=== PATIENT | male | born 1945 | race Two or more races ===

== ENCOUNTER 2024-06-27 11:07 | Inpatient (IN) | payer OTHER ==
--- OUTSIDE RECORDS SUMMARY | 2024-06-27 11:12 | XMS REPORT | Continuity of Care Document ---
Author Name Unknown Address [address] [facility] [place] [address] [facility] Address [address] [place] [address] Care Team Providers Care Entry Writer Name Role Phone BELEN FOUNTAIN Primary Care Physician Belen Pedraza Attending Clinician Unavail able Joseph Hernández Attending Clinician Unavailable Shabnam Patel Attending Clinician Unavailable Katie Gongora Attending Clinician Unavailable IRINEO SIMMONS Attending Clinician Unavailable Payers Payer Name Policy Type Policy Number Effective Date Expirati on Date Source Formerly [facility] TXSTAR 53 [id number] 2023 00:00:00 [facility] Dual Complete (HMO-POS D-SNP) [id number] 2021 00:00:00 [facility] DUAL COMP HMO D SNP [id number] 2023 00:00:00 [facility] HEALTH CHOICE [place] ST[place] [id number] 2024 00:00:00 [facility] AD[facility] WELLMED 53 [id number] 2020 00:00:00 [facility] Problems Condition Name Condition Details Condition Category Status Onset Date Resolution Date Last Treatment Date Treating Clinician Comments Source [id number] Bilateral hearing loss, unspecifie d hearing loss type Problem [facility] [id number] Psoriasis of scalp Problem [facility] [id number] Primary osteoarthr itis involving multiple joints Problem [facility] [id number] Allergic conjunctiv itis of both eyes Problem [facility] Seasonal allergic rhinitis Seasonal allergic rhinitis, unspecifie d trigger Problem [facility] [id number] Essential hypertensi on Problem [facility] Hyperlipid emia Other hyperlipid emia Problem [facility] [id number] Bilateral impacted cerumen Problem [facility] [id number] Psoriasis annularis Problem [facility] [id number] Overweight Problem Com [facility] [id number] Prostate nodule Problem [facility] [id number] PSA elevation Problem [facility] [id number] Benign prostatic hyperplasi a with lower urinary tract symptoms Problem [facility] [id number] Other obstructiv e and reflux uropathy Problem [facility] Lower urinary tract symptoms due to benign prostatic hypertroph y Benign prostatic hyperplasi a with lower urinary tract symptoms, symptom details unspecifie d Problem [facility] Allergies, Adverse Reactions, Alerts Allergy Name Allergy Type Status Severity Reaction(s) Onset Date Inactive Date Treating Clinician Comments Source NO KNOWN ALLERGIE S Drug Class Active [facility] 5023 Drug allergy Active Unknown [facility] Social History Social Habit Start Date Stop Date Quantity Comments Source History of Tobacco Use [facility] Sex Assigned At [facility] Smoking Status Start Date Stop Date Source Never Smoker [facility] Medications Ordered Medication Name Filled Medication Name Start Date Stop Date Current Medication? Ordering Clinician Indication Dosage Frequency Signature (SIG) Comments Components Source Tamsulosin HCl 0.4 MG Tamsulosin HCl 0.4 MG 2023-04 0-07 00:00: 00 No 1{capsu le} BID Tamsulosin HCl 0.4 MG Kenalog (Triamcinol one) Kenalog (Triamcinol one) 1- 00:00: 00 No 40mg [facility] Triamcinolo ne Acetonide 0.1 % Triamcinolo ne Acetonide 0.1 % No 1{appli cation_ to_affe cted_ar ea} BID Triamcinol one Acetonide 0.1 % hydrOXYzine HCl 25 MG hydrOXYzine HCl 25 MG No 1{table t_as_ne eded} QD hydrOXYzin e HCl 25 MG Flonase 50 MCG/DOSE Flonase 50 MCG/DOSE No 2{spray _in_eac h_nostr il} QD Flonase 50 MCG/DOSE Clobetasol Propionate 0.05 % Clobetasol Propionate 0.05 % No 1{appli cation_ to_affe cted_ar ea} BID Clobetasol Propionate 0.05 % amLODIPine Besy-Benaze pril HCl 5-10 MG amLODIPine Besy-Benaze pril HCl 5-10 MG No 1{capsu le} QD amLODIPine Besy-Benaz epril HCl 5-10 MG Olopatadine HCl 0.2 % Olopatadine HCl 0.2 % No QD Olopatadin e HCl 0.2 % Fluticasone Propionate 50 MCG/ACT Fluticasone Propionate 50 MCG/ACT No Fluticason e Propionate 50 MCG/ACT Systane 0.4-0.3 % Systane 0.4-0.3 % No Systane 0.4-0.3 % Pravastatin Sodium 40 MG Pravastatin Sodium 40 MG No 1{table t} QD Pravastati n Sodium 40 MG Atorvastati n Calcium 20 MG Atorvastati n Calcium 20 MG No Atorvastat in Calcium 20 MG Immunizations Ordered Immunization Name Filled Immunization Name Date Status Comments Source Flu Flu 2020-01-28 09:46:[address] [facility] Flu 2020-01-28 09:46:00 [facility]pleted [facility] 2020-01-28 09:46:00 Completed [facility] Td Td 2018-12-07 12:02:00 Completed [facility] Td Td 2018-12-07 12:02:00 Completed [facility] Td Td 2018-12-07 12:02:00 Completed [facility] PNEUMAVAX 23 PNEUMAVAX 2018-12-07 12:01:00 Completed [facility] PNEUMAVAX 23 PNEUMAVAX 23 2018-12-07 12:01:00 Completed [facility] PNEUMAVAX 23 PNEUMAVAX 23 2018-12-07 12:01:00 Completed [facility] Td Td 2018-12-07 00:00:00 Completed [facility] PNEUMAVAX 23 PNEUMAVAX 23 2018-12-07 00:00:00 Completed [facility] Prevnar 13 -Pneumonia Vaccine Prevnar 13 -Pneumonia Vaccine 2017-07-26 13:44:00 Completed [facility] Prevnar 13 -Pneumonia Vaccine Prevnar 13 -Pneumonia Vaccine 2017-07-26 13:44:00 Completed [facility] Prevnar 13 -Pneumonia Vaccine Prevnar 13 -Pneumonia Vaccine 2017-07-26 13:44:00 Completed [facility] Prevnar 13 -Pneumonia Vaccine Prevnar 13 -Pneumonia Vaccine 2017-07-26 00:00:00 Completed [facility] FluAD FluAD Unknown Completed [facility] PNEUMAVAX 23 PNEUMAVAX 23 Unknown Completed Comm on [facility] Td Td Unknown Completed [facility] Prevnar 13 -Pneumonia Vaccine Prevnar 13 -Pneumonia Vaccine Unknown Completed [facility] FluAD Quad SD FluAD Quad SD Unknown Completed [facility] FluAD FluAD Unknown Completed [facility] PNEUMAVAX 23 PNEUMAVAX 23 Unknown Completed Comm on [facility] Td Td Unknown Completed [facility] Prevnar 13 -Pneumonia Vaccine Prevnar 13 -Pneumonia Vaccine Unknown Completed [facility] FluAD Quad SD FluAD Quad SD Unknown Completed [facility] FluAD FluAD Unknown Completed [facility] PNEUMAVAX 23 PNEUMAVAX 23 Unknown Completed Comm on [facility] Td Td Unknown Completed [facility] Prevnar 13 -Pneumonia Vaccine Prevnar 13 -Pneumonia Vaccine Unknown Completed [facility] FluAD Quad SD FluAD Quad SD Unknown Completed [facility] FluAD FluAD Unknown Completed [facility] PNEUMAVAX 23 PNEUMAVAX 23 Unknown Completed Comm on [facility] Td Td Unknown Completed [facility] Prevnar 13 -Pneumonia Vaccine Prevnar 13 -Pneumonia Vaccine Unknown Completed [facility] Fluad (aIIV4) - SDS - 0.5mL Fluad (aIIV4) - SDS - 0.5mL Unknown Completed [facility] FluAD FluAD Unknown Completed [facility] PNEUMAVAX 23 PNEUMAVAX 23 Unknown Completed Comm on [facility] Td Td Unknown Completed [facility] Prevnar 13 -Pneumonia Vaccine Prevnar 13 -Pneumonia Vaccine Unknown Completed [facility] Fluad (aIIV4) - SDS - 0.5mL Fluad (aIIV4) - SDS - 0.5mL Unknown Completed [facility] FluAD FluAD Unknown Completed [facility] PNEUMAVAX 23 PNEUMAVAX 23 Unknown Completed Comm on [facility] Td Td Unknown Completed [facility] Prevnar 13 -Pneumonia Vaccine Prevnar 13 -Pneumonia Vaccine Unknown Completed [facility] Fluad (aIIV4) - SDS - 0.5mL Fluad (aIIV4) - SDS - 0.5mL Unknown Completed [facility] FluAD FluAD Unknown Completed [facility] PNEUMAVAX 23 PNEUMAVAX 23 Unknown Completed Comm on [facility] Td Td Unknown Completed [facility] Prevnar 13 -Pneumonia Vaccine Prevnar 13 -Pneumonia Vaccine Unknown Completed [facility] Fluad (aIIV4) - SDS - 0.5mL Fluad (aIIV4) - SDS - 0.5mL Unknown Completed [facility] FluAD FluAD Unknown Completed [facility] PNEUMAVAX 23 PNEUMAVAX 23 Unknown Completed Comm on [facility] Td Td Unknown Completed [facility] Prevnar 13 -Pneumonia Vaccine Prevnar 13 -Pneumonia Vaccine Unknown Completed [facility] Fluad (aIIV4) - SDS - 0.5mL Fluad (aIIV4) - SDS - 0.5mL Unknown Completed [facility] FluAD FluAD Unknown Completed [facility] PNEUMAVAX 23 PNEUMAVAX 23 Unknown Completed Comm on [facility] Td Td Unknown Completed [facility] Prevnar 13 -Pneumonia Vaccine Prevnar 13 -Pneumonia Vaccine Unknown Completed [facility] Fluad (aIIV4) - SDS - 0.5mL Fluad (aIIV4) - SDS - 0.5mL Unknown Completed [facility] FluAD FluAD Unknown Completed [facility] PNEUMAVAX 23 PNEUMAVAX 23 Unknown Completed Comm on [facility] Td Td Unknown Completed [facility] Prevnar 13 -Pneumonia Vaccine Prevnar 13 -Pneumonia Vaccine Unknown Completed [facility] Vital Signs Vital Name Observation Time Observation Value Comments S martinace height 2024-05-16 15:15:00 63.00 [in_i] Com [facility] weight 2024-05-16 15:15:00 151.2 [lb_av] Co mmon [facility] temperature 2024-05-16 15:15:00 97.6 [degF] Com [facility] bmi 2024-05-16 15:15:00 26.78 kg/m2 Comm on [facility] oximetry 2024-05-16 15:15:00 96 % Commo n [facility] respiratory rate 2024-05-16 15:15:00 18 /min [facility] blood pressure systolic 2024-05-16 15:15:00 124 mm[Hg] [facility] blood pressure diastolic 2024-05-16 15:15:00 59 mm[Hg] [facility] height 2024-03-27 10:45:00 63.00 [in_i] Com [facility] weight 2024-03-27 10:45:00 152.6 [lb_av] Co mmon [facility] temperature 2024-03-27 10:45:00 98.2 [degF] Com [facility] bmi 2024-03-27 10:45:00 27.03 kg/m2 Comm on [facility] oximetry 2024-03-27 10:45:00 90 % Commo n [facility] respiratory rate 2024-03-27 10:45:00 16 /min [facility] blood pressure systolic 2024-03-27 10:45:00 134 mm[Hg] [facility] blood pressure diastolic 2024-03-27 10:45:00 58 mm[Hg] Common [facility] height 2024-01-23 11:00:00 63.00 [in_i] Com [facility] weight 2024-01-23 11:00:00 151 [lb_av] Comm on [facility] temperature 2024-01-23 11:00:00 98 [degF] Comm on [facility] bmi 2024-01-23 11:00:00 26.75 kg/m2 Comm on [facility] oximetry 2024-01-23 11:00:00 92 % Commo n [facility] respiratory rate 2024-01-23 11:00:00 18 /min Common [facility] blood pressure systolic 2024-01-23 11:00:00 130 mm[Hg] [facility] blood pressure diastolic 2024-01-23 11:00:00 50 mm[Hg] Common [facility] height 2024-01-23 11:00:00 63.00 [in_i] Com [facility] weight 2024-01-23 11:00:00 151 [lb_av] Comm on [facility] temperature 2024-01-23 11:00:00 98 [degF] Comm on [facility] bmi 2024-01-23 11:00:00 26.75 kg/m2 Comm on [facility] oximetry 2024-01-23 11:00:00 92 % Commo n [facility] respiratory rate 2024-01-23 11:00:00 18 /min Common [facility] blood pressure systolic 2024-01-23 11:00:00 130 mm[Hg] Common [facility] blood pressure diastolic 2024-01-23 11:00:00 50 mm[Hg] [facility] height 2024-01-06 11:00:00 63.00 [in_i] Com [facility] weight 2024-01-06 11:00:00 151 [lb_av] Comm on [facility] temperature 2024-01-06 11:00:00 97.9 [degF] Com [facility] bmi 2024-01-06 11:00:00 26.75 kg/m2 Comm on [facility] oximetry 2024-01-06 11:00:00 90 % Commo n [facility] respiratory rate 2024-01-06 11:00:00 16 /min Common [facility] blood pressure systolic 2024-01-06 11:00:00 115 mm[Hg] [facility] blood pressure diastolic 2024-01-06 11:00:00 60 mm[Hg] [facility] height 2023-09-23 13:00:00 63.00 [in_i] Com [facility] weight 2023-09-23 13:00:00 152 [lb_av] Comm on [facility] temperature 2023-09-23 13:00:00 98 [degF] Comm on [facility] bmi 2023-09-23 13:00:00 26.92 kg/m2 Comm on [facility] oximetry 2023-09-23 13:00:00 90 % Commo n [facility] respiratory rate 2023-09-23 13:00:00 15 /min Common [facility] blood pressure systolic 2023-09-23 13:00:00 134 mm[Hg] [facility] blood pressure diastolic 2023-09-23 13:00:00 61 mm[Hg] Common [facility] height 2023-06-23 13:20:00 63.00 [in_i] Com [facility] weight 2023-06-23 13:20:00 149 [lb_av] Comm on [facility] temperature 2023-06-23 13:20:00 98 [degF] Comm on [facility] bmi 2023-06-23 13:20:00 26.39 kg/m2 Comm on [facility] oximetry 2023-06-23 13:20:00 91 % Commo n [facility] respiratory rate 2023-06-23 13:20:00 16 /min Common [facility] blood pressure systolic 2023-06-23 13:20:00 124 mm[Hg] [facility] blood pressure diastolic 2023-06-23 13:20:00 60 mm[Hg] [facility] height 2023-06-23 13:00:00 63.00 [in_i] Com [facility] weight 2023-06-23 13:00:00 149 [lb_av] Comm on [facility] temperature 2023-06-23 13:00:00 98 [degF] Comm on [facility] bmi 2023-06-23 13:00:00 26.39 kg/m2 Comm on [facility] oximetry 2023-06-23 13:00:00 91 % Commo n [facility] respiratory rate 2023-06-23 13:00:00 16 /min Common [facility] blood pressure systolic 2023-06-23 13:00:00 124 mm[Hg] [facility] blood pressure diastolic 2023-06-23 13:00:00 60 mm[Hg] [facility] height 2023-05-23 10:00:00 63.00 [in_i] Com [facility] weight 2023-05-23 10:00:00 152 [lb_av] Comm on [facility] temperature 2023-05-23 10:00:00 98.1 [degF] Com [facility] bmi 2023-05-23 10:00:00 26.92 kg/m2 Comm on [facility] oximetry 2023-05-23 10:00:00 93 % Commo n [facility] respiratory rate 2023-05-23 10:00:00 16 /min [facility] blood pressure systolic 2023-05-23 10:00:00 126 mm[Hg] [facility] blood pressure diastolic 2023-05-23 10:00:00 56 mm[Hg] [facility] height 2023-02-21 09:30:00 63.00 [in_i] Com [facility] weight 2023-02-21 09:30:00 157.1 [lb_av] Co mmon [facility] temperature 2023-02-21 09:30:00 98.2 [degF] Com [facility] bmi 2023-02-21 09:30:00 27.83 kg/m2 Comm on [facility] oximetry 2023-02-21 09:30:00 94 % Commo n [facility] respiratory rate 2023-02-21 09:30:00 16 /min [facility] blood pressure systolic 2023-02-21 09:30:00 120 mm[Hg] [facility] blood pressure diastolic 2023-02-21 09:30:00 54 mm[Hg] [facility] height 2022-10-26 10:10:00 63.00 [in_i] Com [facility] weight 2022-10-26 10:10:00 152.0 [lb_av] Co [facility] temperature 2022-10-26 10:10:00 97.5 [degF] Com [facility] bmi 2022-10-26 10:10:00 26.92 kg/m2 Comm on [facility] oximetry 2022-10-26 10:10:00 90 % Commo n [facility] respiratory rate 2022-10-26 10:10:00 18 /min [facility] blood pressure systolic 2022-10-26 10:10:00 133 mm[Hg] [facility] blood pressure diastolic 2022-10-26 10:10:00 60 mm[Hg] [facility] height 2022-10-26 10:20:00 63.00 [in_i] Com [facility] weight 2022-10-26 10:20:00 152.0 [lb_av] [facility] 2022-10-26 10:20:00 97.5 [degF] Com [facility] bmi 2022-10-26 10:20:00 26.92 kg/m2 Comm on [facility] oximetry 2022-10-26 10:20:00 90 % Commo n [facility] respiratory rate 2022-10-26 10:20:00 18 /min [facility] blood pressure systolic 2022-10-26 10:20:00 133 mm[Hg] [facility] blood pressure diastolic 2022-10-26 10:20:00 60 mm[Hg] Common [facility] height 2022-06-17 11:20:00 63.00 [in_i] Com [facility] weight 2022-06-17 11:20:00 151.2 [lb_av] Co [facility] temperature 2022-06-17 11:20:00 97.4 [degF] Com [facility] bmi 2022-06-17 11:20:00 26.78 kg/m2 Comm on [facility] oximetry 2022-06-17 11:20:00 96 % Commo n [facility] respiratory rate 2022-06-17 11:20:00 17 /min [facility] blood pressure systolic 2022-06-17 11:20:00 122 mm[Hg] Common [facility] blood pressure diastolic 2022-06-17 11:20:00 60 mm[Hg] [facility] height 2022-03-19 11:00:00 63.00 [in_i] Com [facility] weight 2022-03-19 11:00:00 158.0 [lb_av] Co [facility] temperature 2022-03-19 11:00:00 98.0 [degF] Com [facility] bmi 2022-03-19 11:00:00 27.99 kg/m2 Comm on [facility] oximetry 2022-03-19 11:00:00 95 % Commo n [facility] respiratory rate 2022-03-19 11:00:00 15 /min [facility] blood pressure systolic 2022-03-19 11:00:00 128 mm[Hg] Common [facility] blood pressure diastolic 2022-03-19 11:00:00 61 mm[Hg] Common [facility] height 2021-12-17 08:00:00 63.00 [in_i] Com [facility] weight 2021-12-17 08:00:00 157.6 [lb_av] Co mmon [facility] temperature 2021-12-17 08:00:00 97.7 [degF] Com [facility] bmi 2021-12-17 08:00:00 27.91 kg/m2 Comm on [facility] oximetry 2021-12-17 08:00:00 95 % Commo n [facility] respiratory rate 2021-12-17 08:00:00 16 /min Common [facility] blood pressure systolic 2021-12-17 08:00:00 128 mm[Hg] Common [facility] blood pressure diastolic 2021-12-17 08:00:00 61 mm[Hg] [facility] height 2021-09-15 08:20:00 63.00 [in_i] Com [facility] weight 2021-09-15 08:20:00 157 [lb_av] Comm on [facility] temperature 2021-09-15 08:20:00 97.7 [degF] Com [facility] bmi 2021-09-15 08:20:00 27.81 kg/m2 Comm on [facility] oximetry 2021-09-15 08:20:00 93 % Commo n [facility] respiratory rate 2021-09-15 08:20:00 21 /min Common [facility] blood pressure systolic 2021-09-15 08:20:00 122 mm[Hg] [facility] blood pressure diastolic 2021-09-15 08:20:00 70 mm[Hg] [facility] height 2021-06-15 10:00:00 63.00 [in_i] Com [facility] weight 2021-06-15 10:00:00 161.5 [lb_av] Co mmon [facility] temperature 2021-06-15 10:00:00 97.9 [degF] Com [facility] bmi 2021-06-15 10:00:00 28.61 kg/m2 Comm on [facility] oximetry 2021-06-15 10:00:00 96 % Commo n [facility] respiratory rate 2021-06-15 10:00:00 16 /min Common [facility] blood pressure systolic 2021-06-15 10:00:00 128 mm[Hg] Common [facility] blood pressure diastolic 2021-06-15 10:00:00 56 mm[Hg] [facility] height 2021-03-16 08:20:00 63.00 [in_i] Com [facility] weight 2021-03-16 08:20:00 157 [lb_av] Comm on [facility] temperature 2021-03-16 08:20:00 98 [degF] Comm on [facility] bmi 2021-03-16 08:20:00 27.81 kg/m2 Comm on [facility] oximetry 2021-03-16 08:20:00 96 % Commo n [facility] blood pressure systolic 2021-03-16 08:20:00 132 mm[Hg] Common [facility] blood pressure diastolic 2021-03-16 08:20:00 70 mm[Hg] Common [facility] height 2020-12-11 15:20:00 63.00 [in_i] Com [facility] weight 2020-12-11 15:20:00 159.2 [lb_av] Co mmon [facility] temperature 2020-12-11 15:20:00 97.2 [degF] Com [facility] bmi 2020-12-11 15:20:00 28.2 kg/m2 Commo n [facility] oximetry 2020-12-11 15:20:00 95 % Commo n [facility] respiratory rate 2020-12-11 15:20:00 18 /min [facility] blood pressure systolic 2020-12-11 15:20:00 120 mm[Hg] [facility] blood pressure diastolic 2020-12-11 15:20:00 60 mm[Hg] [facility] Procedures Procedure Date / Time Performed Performing Clinicia n Source PVR 2024-05-16 00:00:00 [facility] Encounters Start Date/Time End Date/Time Encounter Type Admission Type Attending Clinicians Care Facility Care Department Encounter ID Source 2024-06-21 10:29:00 Outpatient Belen Fountain [facility] [id number] [facility] 2024-03-28 13:56:00 Outpatient eBlen Fountain [facility] [id number] [facility] 2024-01-18 15:32:00 Outpatient Belen Fountain [facility] [id number] [facility] 2024-01-12 07:53:00 Outpatient Belen Fountain [facility] [id number] [facility] 2023-12-21 11:56:00 Outpatient Hernández, Joseph [facility] ST[facility] [id number] [facility] 2023-09-21 09:15:00 Outpatient Hernández, Joseph [facility] [id number] [facility] 2023-06-21 14:08:00 Outpatient Hernández, Joseph [facility] [id number] [facility] 2023-05-20 10:02:00 Outpatient Hernández, Joseph [facility] [id number] [facility] 2023-02-18 13:27:00 Outpatient Hernández, Joseph [facility] [id number] [facility] 2023-02-17 10:52:00 Outpatient Joseph Hernández [facility] [id number] [facility] 2022-10-26 09:38:00 Outpatient Joseph Hernández [facility] [id number] [facility] 2022-06-16 09:47:00 Outpatient [facility] [id number] [facility] 2022-06-11 11:52:00 Outpatient STLMLC STLMLC [id number] [facility] 2022-06-10 14:22:00 Outpatient Shabnam Patel STLMLC STLMLC [id number] [facility] 2021-12-17 08:09:00 Outpatient Gongora, Na STLMLC STLMLC [id number] [facility] 2021-12-15 08:40:00 Outpatient Gongora, Na STLMLC STLMLC [id number] [facility] 2021-10-26 16:45:00 Outpatient Gongora, Na STLMLC STLMLC [id number] [facility] 2021-09-16 12:34:00 Outpatient Gongora, Na STLMLC STLMLC [id number] [facility] 2021-09-10 10:24:00 Outpatient Gongora, Na STLMLC STLMLC [id number] [facility] 2021-06-12 10:30:02 Outpatient Gongora, Na STLMLC STLMLC [id number] [facility] 2021-05-13 13:19:10 Outpatient Gongora, Na STLMLC STLMLC [id number] [facility] 2021-05-13 12:50:38 Outpatient Gongora, Na STLMLC STLMLC [id number] [facility] 2021-05-13 12:19:51 Outpatient Gongora, Na STLMLC STLMLC [id number] [facility] 2021-05-13 11:53:53 Outpatient Gongora, Na STLMLC STLMLC [id number] [facility] 2021-05-13 11:53:40 Outpatient Gongora, Na STLMLC STLMLC [id number] [facility] 2021-05-13 11:53:08 Outpatient Gongora, Na STLMLC STLMLC [id number] [facility] 2021-05-13 11:40:08 Outpatient Gongora, Na STLMLC STLMLC [id number] [facility] 2021-05-13 11:30:21 Outpatient Gongora, Na STLMLC STLMLC [id number] [facility] 2021-05-13 11:14:24 Outpatient Gongora, Na STLMLC STLMLC [id number] [facility] 2021-05-13 10:59:38 Outpatient Fransisca, Na STLMLC STLMLC [id number] [facility] 2024-06-25 00:00:00 2024-06-25 00:00:00 (TEL) STLMLC STLMLC [id number] [facility] 2024-06-24 00:00:00 2024-06-24 00:00:00 (TEL) STLMLC STLMLC [id number] [facility] 2024-05-16 00:00:00 2024-05-16 00:00:00 OFFICE VISIT NEW PT LEVEL 4 [facility]C STLMLC [id number] [facility] 2024-03-27 00:00:00 2024-03-27 00:00:00 OFFICE VISIT ESTAB PT LEVEL 4 [facility] STLMLC [id number] [facility] 2024-03-19 00:00:00 2024-03-19 00:00:00 (TEL) STLMLC STLMLC [id number] [facility] 2024-02-14 08:30:00 2024-02-14 09:11:34 Outpatient IRINEO OJEDA [facility] [id number] [facility] 2024-01-27 00:00:00 2024-01-27 00:00:00 (TEL) STLMLC STLMLC [id number] [facility] 2024-01-23 00:00:00 2024-01-23 00:00:00 OFFICE VISIT ESTAB PT LEVEL 3 [facility] STLMLC [id number] [facility] 2024-01-23 00:00:00 2024-01-23 00:00:00 (TEL) STLMLC STLMLC [id number] [facility] 2024-01-13 00:00:00 2024-01-13 00:00:00 (TEL) STLMLC STLMLC [id number] [facility] 2024-01-12 00:00:00 2024-01-12 00:00:00 (TEL) STLMLC STLMLC [id number] [facility] 2024-01-12 00:00:00 2024-01-12 00:00:00 (TEL) STLMLC STLMLC [id number] [facility] 2024-01-09 00:00:00 2024-01-09 00:00:00 (TEL) STLMLC STLMLC [id number] [facility] 2024-01-06 00:00:00 2024-01-06 00:00:00 OFFICE VISIT ESTAB PT LEVEL 4 [facility] STLMLC [id number] [facility] 2023-09-23 00:00:00 2023-09-23 00:00:00 OFFICE VISIT ESTAB PT LEVEL 4 [facility] STLMLC [id number] [facility] 2023-06-23 00:00:00 2023-06-23 00:00:00 OFFICE VISIT ESTAB PT LEVEL 4 [facility] STLMLC [id number] [facility] 2023-06-23 00:00:00 2023-06-23 00:00:00 SUB ANNUAL MCR WELLNESS VISIT STLMLC STLMLC [id number] [facility] 2023-05-23 00:00:00 2023-05-23 00:00:00 OFFICE VISIT NEW PT LEVEL 4 [facility] STL[facility]C [id number] [facility] 2023-02-21 00:00:00 2023-02-21 00:00:00 OFFICE VISIT ESTAB PT LEVEL 4 [facility] STLMLC [id number] [facility] 2023-01-26 00:00:00 2023-01-26 00:00:00 (TEL) STLMLC STLMLC [id number] [facility] 2022-10-26 00:00:00 2022-10-26 00:00:00 OFFICE VISIT ESTAB PT LEVEL 4 [facility] STLMLC [id number] [facility] 2022-10-26 00:00:00 2022-10-26 00:00:00 SUB ANNUAL MCR WELLNESS VISIT STLMLC STLMLC [id number] [facility] 2022-06-17 00:00:00 2022-06-17 00:00:00 OFFICE VISIT ESTAB PT LEVEL 4 [facility] STLMLC [id number] [facility] 2022-06-10 00:00:00 2022-06-10 00:00:00 (TEL) STLMLC STLMLC [id number] [facility] 2022-03-19 00:00:00 2022-03-19 00:00:00 OFFICE VISIT ESTAB PT LEVEL 4 [facility] STLMLC [id number] [facility] 2021-12-17 00:00:00 2021-12-17 00:00:00 OFFICE VISIT ESTAB PT LEVEL 4 [facility] STL[facility]C [id number] [facility] 2021-09-15 00:00:00 2021-09-15 00:00:00 OFFICE VISIT ESTAB PT LEVEL 4 [facility] STLMLC [id number] [facility] 2021-06-15 00:00:00 2021-06-15 00:00:00 OFFICE VISIT ESTAB PT LEVEL 4 [facility] STLMLC [id number] [facility] 2021-03-16 00:00:00 2021-03-16 00:00:00 OFFICE VISIT ESTAB PT LEVEL 4 [facility] STLMLC [id number] [facility] 2020-12-11 00:00:00 2020-12-11 00:00:00 OFFICE VISIT ESTAB PT LEVEL 4 [facility] STLMLC [id number] [facility] 2020-12-11 00:00:00 2020-12-11 00:00:00 Outpatient [facility]LMLC STLMLC [id number] [facility] 2020-08-28 00:00:00 2020-08-28 00:00:00 Outpatient [facility]LMLC STLMLC [id number] [facility] 2020-04-29 00:00:00 2020-04-29 00:00:00 Outpatient [facility]LMLC STLMLC [id number] [facility] 2020-01-28 00:00:00 2020-01-28 00:00:00 Outpatient STLMLC STLMLC [id number] [facility] 2019-12-12 11:00:00 2019-12-12 11:00:[address] [facility] [id number] [facility] 2019-11-11 20:20:00 2019-11-11 20:20:[address] [facility] [id number] [facility] 2019-10-26 08:40:00 2019-10-26 08:40:[address] [facility] [facility] [id number] [facility] 2019-07-27 09:46:00 2019-07-27 09:46:00 [address] [facility] [id number] [facility] 2019-04-27 10:20:00 2019-04-27 10:20:00 [address] [facility] [id number] [facility] 2019-01-25 10:40:00 2019-01-25 10:40:[address] [facility] [id number] [facility] 2018-12-07 09:40:00 2018-12-07 09:40:00 [address] [facility] [id number] [facility] 2018-10-25 10:20:00 2018-10-25 10:20:00 [address] [facility] [id number] [facility] 2018-07-26 10:00:00 2018-07-26 10:00:00 [address] [facility] [id number] [facility] 2018-06-28 16:31:00 2018-06-28 16:31:00 [address] [facility] [id number] [facility] 2018-05-24 16:12:00 2018-05-24 16:12:[address] [facility] [id number] [facility] 2018-04-27 09:30:00 2018-04-27 09:30:00 [facility] [facility] [id number] [facility] 2017-10-25 09:30:00 2017-10-25 09:30:00 [address] [facility] [id number] [facility] 2017-07-26 20:41:00 2017-07-26 20:41:[address] [facility] [id number] [facility] 2017-07-26 11:00:00 2017-07-26 11:00:00 [facility] [id number] [facility] Results Test Description Test Time Test Comments Results Result Co mments Source PSA, [id number] 00:00:00* Test Item Value Reference Range Interpretation Comme nts PSA, TOTAL (test code = 71375-1) 5.83 NG/ML See_Comment H [Automated messa ge] The system which generated this result transmitted reference range: <=4.00 NG/ML. The reference range was not used to interpret this result as normal/abnormal. STREP A [id number] 00:00:00ResultSTREP A [id number] 00:00:00ResultCBC W/AUTO [id number] 00:00:00* Test Item Value Reference Range Interpretation Comme nts NUCLEATED RBCS (test code = 40975-0) 0.0 /100 WBC'S See_Comment [Automated messa ge] The system which generated this result transmitted reference range: 0.0 /100 WBC'S. The reference range was not used to interpret this result as normal/abnormal. ABSOLUTE EOSINOPHILS (test code = 87570-6) 0.15 K/UL See_Comment [Automated messa ge] The system which generated this result transmitted reference range: 0.00-0.50 K/UL. The reference range was not used to interpret this result as normal/abnormal. ABSOLUTE LYMPHOCYTES (test code = 10159-2) 2.02 K/UL See_Comment [Automated messa ge] The system which generated this result transmitted reference range: 1.00-4.00 K/UL. The reference range was not used to interpret this result as normal/abnormal. ABSOLUTE MONOCYTES (test code = 47730-9) 0.67 K/UL See_Comment [Automated messa ge] The system which generated this result transmitted reference range: 0.20-1.00 K/UL. The reference range was not used to interpret this result as normal/abnormal. ABSOLUTE NEUTROPHILS (test code = 03600-2) 4.14 K/UL See_Comment [Automated messa ge] The system which generated this result transmitted reference range: 1.50-7.50 K/UL. The reference range was not used to interpret this result as normal/abnormal. BASOPHILS (test code = 98007-2) 0.3 % EOSINOPHILS (test code = 14892-4) 2.1 % HEMATOCRIT (test code = 04461-0) 51.4 % See_Comment H [Automated messa ge] The system which generated this result transmitted reference range: 40.0-51.0 %. The reference range was not used to interpret this result as normal/abnormal. HEMOGLOBIN (test code = 718-7) 17.3 G/DL See_Comment H [Automated messa ge] The system which generated this result transmitted reference range: 13.5-17.0 G/DL. The reference range was not used to interpret this result as normal/abnormal. LYMPHOCYTES (test code = 31045-2) 28.8 % MCH (test code = 08163-1) 30.7 PG See_Comment [Automated messa ge] The system which generated this result transmitted reference range: 25.0-33.0 PG. The reference range was not used to interpret this result as normal/abnormal. MCHC (test code = 51239-2) 33.7 G/DL See_Comment [Automated messa ge] The system which generated this result transmitted reference range: 31.0-36.0 G/DL. The reference range was not used to interpret this result as normal/abnormal. MCV (test code = 07369-4) 91.1 fL See_Comment [Automated messa ge] The system which generated this result transmitted reference range: 80.0-99.0 fL. The reference range was not used to interpret this result as normal/abnormal. MONOCYTES (test code = 50254-7) 9.5 % NEUTROPHILS (test code = 64507-5) 59.0 % PLATELET COUNT (test code = 34401-1) 250 K/UL See_Comment [Automated messa ge] The system which generated this result transmitted reference range: 130-400 K/UL. The reference range was not used to interpret this result as normal/abnormal. RBC (test code = 08712-8) 5.64 M/UL See_Comment [Automated messa ge] The system which generated this result transmitted reference range: 4.50-6.10 M/UL. The reference range was not used to interpret this result as normal/abnormal. RDW (test code = 47161-4) 12.7 % See_Comment [Automated [employer]] The system which generated this result transmitted reference range: 11.5-15.0 %. The reference range was not used to interpret this result as normal/abnormal. WBC (test code = 46231-5) 7.0 K/UL See_Comment [Automated [employer]] The system which generated this result transmitted reference range: 3.5-11.0 K/UL. The reference range was not used to interpret this result as normal/abnormal. POC, COVID 19 Antigen + Flu by SofiaPOC, COVID 19 Antigen + Flu by SofiaPOC, COVID 19 Antigen + Flu by SofiaPOC, COVID 19 Antigen + Flu by Swetha
[2024-06-27 12:04] LABS: Absolute Monocytes 0.9 K/uL (0.1-1.3); Absolute Neutrophil 3.8 K/uL (1.8-8.0); Basophils % 0.3 % (0-1.3); Eosinophils % 0.5 % (0-4.4); Hematocrit 48.8 % (39.6-49.0); Lymphocytes % 18.3 % (15.3-44.8); MCH 28.8 pg (27.0-35.0); MCHC 32.8 g/dL (32.0-36.0); MCV 87.7 fL (80-100); Monocytes % 14.9 % (3.3-12.3); Nucleated Red Blood Cells % 0.2 % (0-0); Platelets 223 thou/uL (152-406); RBC Red Blood Cell Count 5.57 M/uL (4.33-5.43); Red Cell Distribution Width 15.3 % (12.1-15.2)
[2024-06-27 12:13] LABS: PT Prothrombin Time 12.4 SECONDS (10-13.0); PTT, Activated Partial Thromb 40.3 SECONDS (27.2-37.4); Protime INR 1.09
[2024-06-27 12:21] LABS: Influenza A Ag Negative; Influenza B Ag Negative; SARS-CoV-2 Antigen Rapid Res Negative (Negative)
--- NOTE | 2024-06-27 12:24 | RAD REPORT ---
EXAMINATION: ONE VIEW CHEST XR CLINICAL INDICATION: DYSPNEA TECHNIQUE: Frontal chest projection is submitted. Examination is limited by patient positioning and t echnique. COMPARISON: No prior exam. FINDINGS: Wgnl-ew-zvmyenva bilateral pulmonary opacities may represent pulmonary edema. Small to moderate pleur al effusions, slightly greater on the right. The heart is moderately enlarged in size. No displaced fractures identified. IMPRESSION: Moderate CHF versus volume overload pattern suspected.
[2024-06-27 12:45] LABS: Albumin 3.4 g/dL (3.4-5.0); Anion Gap 6.6 mEq/L (5.0-15.0); Bilirubin Total 1.4 mg/dL (0.2-1.0); Globulin 3.5 g/dL (2.3-3.5); Potassium 3.6 mEq/L (3.5-5.1); Protein, Total 6.9 g/dL (6.4-8.2)
--- NOTE | 2024-06-27 12:57 | ER ---
Nurse's Notes [facility] Name: Fabian Yuen Age: 78 yrs Sex: Male : 1945 Arrival Date: 06/27/2024 Time: 11:07 Bed 20 Private MD: Diagnosis: Acute pulmonary edema;Hypoxemia Presentation: 06/27 11:17 Chief complaint: Patient's son or daughter states: Went to follow up appointment this ph morning, when they checked hi vitals his oxygen was low, pt 78% in triage. Coronavirus screen: Vaccine status: Patient reports being unvaccinated. Ebola Screen: No symptoms or risks identified at this time. Initial Sepsis Screen: Does the patient meet any 2 criteria? No. Patient's initial sepsis screen is negative. Initial Sepsis Screen: Does the patient have a suspected source of infection? No. Patient's initial sepsis screen is negative. Risk Assessment: Do you want to hurt yourself or someone else? Patient reports no desire to harm self or others. Onset of symptoms. 11:17 Method Of Arrival: Wheelchair ph 11:17 Acuity: RICARDO 2 ph Historical: - Allergies: 12:17 No Known Allergies; kc6 - Home Meds: 12:17 Flomax 0.4 mg Oral capsule 1 cap once for benign prostatic hyperplasia with lower kc6 urinary tract symptom [Active]; Atarax Oral 25 mg twice a day [Active]; amlodipine 5 mg tablet 1 tab daily for hypertension [Active]; atorvastatin 20 mg oral tablet 1 tab daily for hypercholesterolemia, hyperlipidemia [Active]; - PMHx: 12:17 Hypercholesterolemia; Hypertensive disorder; benign prostatic hyperplastia; Anxiety; kc6 - PSHx: 12:17 None; kc6 - Immunization history:: Adult Immunizations up to date. - Infectious Disease History:: Denies. - Family history:: not pertinent. - Hospitalizations: : No recent hospitalization is reported. - Social history:: Smoking status: Patient/guardian denies using tobacco, the patient reports quitting approximately 17 years ago. Screenin:[facility] ED Fall Risk Assessment (Adult) History of falling in the last 3 months, kc6 including since admission No falls in past 3 months (0 pts) Confusion or Disorientation No (0 pts) Intoxicated or Sedated No (0 pts) Impaired Gait No (0 pts) Mobility Assist Device Used Yes (1 pt) Altered Elimination No (0 pt) Score/Fall Risk Level 0 - 2 = Low Risk Oriented to surroundings, Maintained a safe environment, Educated pt \T\ family on fall prevention, incl call for assistance when getting out of bed. Abuse screen: Denies threats or abuse. Denies injuries from another. Nutritional screening: No deficits noted. Tuberculosis screening: No symptoms or risk factors identified. Assessment: 13:23 General: Appears in no apparent distress. uncomfortable, well groomed, well developed, kc6 Behavior is calm, cooperative, appropriate for age. Pain: Denies pain. Neuro: Level of Consciousness is awake, alert, obeys commands, Oriented to person, place, time, situation, Appropriate for age. Cardiovascular: Denies chest pain, Heart tones S1 S2 present Capillary refill < 3 seconds Rhythm is regular. Respiratory: Reports shortness of breath at rest on exertion Airway is patent Trachea midline Respiratory effort is even, labored, pursed lip, with retractions, using tripod position, Respiratory pattern is symmetrical, tachypnea Breath sounds with wheezes bilaterally. the patient has moderate shortness of breath. GI: No signs and/or symptoms were reported involving the gastrointestinal system. : No signs and/or symptoms were reported regarding the genitourinary system. EENT: No signs and/or symptoms were reported regarding the EENT system. Derm: No signs and/or symptoms reported regarding the dermatologic system. Skin is intact, is healthy with good turgor, Skin is pink, warm \T\ dry. Musculoskeletal: No signs and/or symptoms reported regarding the musculoskeletal system. Circulation, motion, and sensation intact. Range of motion: intact in all extremities. 14:47 Reassessment: Patient appears in no apparent distress at this time. No changes from kc6 previously documented assessment. Patient and/or family updated on plan of care and expected duration. Pain level reassessed. Patient is alert, oriented x 3, equal unlabored respirations, skin warm/dry/pink. 16:11 Reassessment: Patient appears in no apparent distress at this time. No changes from kc6 previously documented assessment. Patient and/or family updated on plan of care and expected duration. Pain level reassessed. Patient is alert, oriented x 3, equal unlabored respirations, skin warm/dry/pink. 17:22 Reassessment: Patient appears in no apparent distress at this time. No changes from kc6 previously documented assessment. Patient and/or family updated on plan of care and expected duration. Pain level reassessed. Patient is alert, oriented x 3, equal unlabored respirations, skin warm/dry/pink. Vital Signs: 11:17 BP 137 / 73; Pulse 102; Resp 28; Pulse Ox 72% on R/A; ph 12:12 BP 151 / 72; Pulse 99; Resp 25 S; Pulse Ox 95% on 5 lpm NC; Weight 66.68 kg (M); Height kc6 5 ft. 2 in. (R); 13:24 BP 153 / 80; Pulse 99; Resp 36 S; Pulse Ox 94% on 5 lpm NC; kc6 14:48 BP 146 / 63; Pulse 96; Resp 31 S; Pulse Ox 94% on 5 lpm NC; kc6 16:12 BP 147 / 66; Pulse 97; Resp 28 S; Pulse Ox 95% on 5 lpm NC; kc6 17:23 BP 136 / 62; Pulse 95; Resp 30 S; Pulse Ox 95% on 5 lpm NC; kc6 12:12 Body Mass Index 26.89 (66.68 kg, 157.48 cm) 6 ED Course: 11:10 Patient arrived in ED. cj3 11:11 David Blanco MD is Attending Physician. rn 11:19 Triage completed. ph 11:19 Arm band placed on Patient placed in an exam room, on a stretcher, on oxygen. ph 11:31 Rand Chiang, RN is Primary Nurse. [facility] 11:59 Patient has correct armband on for positive identification. Placed in gown. Bed in low kc6 position. Call light in reach. Side rails up X2. Adult w/ patient. band director on. Pulse ox on. NIBP on. Door closed. Noise minimized. Lights dimmed. Warm blanket given. Pillow given. Verbal reassurance given. 11:59 Initial lab(s) drawn, by me, sent to lab. EKG done, by ED staff, reviewed by David Blanco MD. Inserted saline lock: 20 gauge in right antecubital area, using aseptic technique. Blood collected. Flushed with 10 mL NS. Oxygen administration via nasal cannula \T\ 5L/min. 12:08 XRAY Chest (1 view) In Process Unspecified. EDMS 12:56 Jovani Mohr MD is Hospitalizing Provider. rn 15:43 Notified ED physician of a critical lab result(s). troponin 88. ll1 17:48 No provider procedures requiring assistance completed. Patient admitted, IV remains in kc6 place. Administered Medications: 13:23 Drug: Furosemide IVP 40 mg IVP once; give over 2 minutes Route: IVP; Site: right kc6 antecubital; 14:47 Follow up: Response: No adverse reaction kc6 Medication: 17:49 VIS not applicable for this client. kc6 Output: 14:47 Urine: 900ml (Voided); Total: 900ml. kc6 17:22 Urine: 1000ml (Voided); Total: 1900ml. kc6 Outcome: 12:56 Decision to Hospitalize by Provider. rn 17:49 Admitted to Med/surg accompanied by tech, family with patient, via stretcher, room 216, kc6 with oxygen, with chart, Report called to Tanya 17:49 Condition: stable 17:49 Instructed on the need for admit, 17:49 Patient left the ED. kc Signatures: Dispatcher [employer] EDMS David Blanco MD MD rn Hall, Patricia, RN RN ph Lewis, Lynsay, RN RN ll1 Rand Chiang RN RN kc6 Joy Smith 3 Corrections: (The following items were deleted from the chart) 12:19 12:12 BP 151 / 72; Pulse 99bpm; Resp 25bpm; Spontaneous; Pulse Ox 95% 5 lpm Nasal kc6 Cannula; kc6
--- NOTE | 2024-06-27 12:57 | EDPHYS ---
Physician Documentation [facility] Name: Fabian Yuen Age: 78 yrs Sex: Male : 1945 Arrival Date: 06/27/2024 Time: 11:07 Bed 20 Private MD: ED Physician David Blanco HPI: 06/27 11:22 This 78 yrs old [place] Male presents to ER via Wheelchair with complaints of Low O2. rn 11:22 The patient has shortness of breath at rest, with light activity. rn 11:22 Onset: The symptoms/episode began/occurred at an unknown time. The patient's shortness rn of breath is aggravated by exertion, light activity. Severity of symptoms: At their worst the symptoms were moderate in the emergency department the symptoms are unchanged. The patient has not experienced similar symptoms in the past. Patient and family reports shortness of breath and low oxygen today in PCPs clinic. No chronic lung or heart problems. Daughter reports infection last month but nothing more recent. No fever or chills. No hemoptysis. Previous smoker but no diagnosis of COPD. No known heart failure. Reports mild swelling with pedal edema.. Historical: - Allergies: 12:17 No Known Allergies; kc6 - Home Meds: 12:17 Flomax 0.4 mg Oral capsule 1 cap once for benign prostatic hyperplasia with lower kc6 urinary tract symptom [Active]; Atarax Oral 25 mg twice a day [Active]; amlodipine 5 mg tablet 1 tab daily for hypertension [Active]; atorvastatin 20 mg oral tablet 1 tab daily for hypercholesterolemia, hyperlipidemia [Active]; - PMHx: 12:17 Hypercholesterolemia; Hypertensive disorder; benign prostatic hyperplastia; Anxiety; kc6 - PSHx: 12:17 None; kc6 - Immunization history:: Adult Immunizations up to date. - Infectious Disease History:: Denies. - Family history:: not pertinent. - Hospitalizations: : No recent hospitalization is reported. - Social history:: Smoking status: Patient/guardian denies using tobacco, the patient reports quitting approximately 17 years ago. ROS: 11:22 Constitutional: Negative for fever, chills, and weight loss, Cardiovascular: Positive rn for pedal edema, negative for chest pain Respiratory: Positive for shortness of breath Abdomen/GI: Negative for abdominal pain, nausea, vomiting, diarrhea, and constipation, MS/Extremity: Negative for injury and deformity, Skin: Negative for injury, rash, and discoloration, Neuro: Negative for headache, weakness, numbness, tingling, and seizure, Exam: 11:22 Constitutional: This is a well developed, well nourished patient who is awake, alert, rn moderate tachypnea Head/Face: Normocephalic, atraumatic. ENT: No stridor Cardiovascular: Tachycardic, regular Respiratory: Moderate tachypnea with bibasilar crackles Abdomen/GI: Soft, non-tender MS/ Extremity: Pulses equal, no cyanosis. 1+ pedal edema, equal circumference bilaterally Neuro: Awake and alert, GCS 15 14:20 ECG was reviewed by the Attending Physician. rn Vital Signs: 11:17 BP 137 / 73; Pulse 102; Resp 28; Pulse Ox 72% on R/A; ph 12:12 BP 151 / 72; Pulse 99; Resp 25 S; Pulse Ox 95% on 5 lpm NC; Weight 66.68 kg (M); Height kc6 5 ft. 2 in. (R); 13:24 BP 153 / 80; Pulse 99; Resp 36 S; Pulse Ox 94% on 5 lpm NC; kc6 14:48 BP 146 / 63; Pulse 96; Resp 31 S; Pulse Ox 94% on 5 lpm NC; kc6 16:12 BP 147 / 66; Pulse 97; Resp 28 S; Pulse Ox 95% on 5 lpm NC; kc6 17:23 BP 136 / 62; Pulse 95; Resp 30 S; Pulse Ox 95% on 5 lpm NC; kc6 12:12 Body Mass Index 26.89 (66.68 kg, 157.48 cm) [facility] MDM: 11:11 Medical Screening Exam initiated rn 12:55 Differential diagnosis: CHF exacerbation, Chronic Obstructive Pulmonary Disease rn Myocardial Infarction pneumonia, Pneumothorax pulmonary edema. Data reviewed: vital signs, nurses notes, lab test result(s), EKG, radiologic studies, plain films, and as a result, I will admit patient. Consideration of Admission/Observation Patient was admitted/placed on observation. Escalation of care including admission/observation considered. Counseling: I had a detailed discussion with the patient and/or guardian regarding the historical points, exam findings, and any diagnostic results supporting the discharge/admit diagnosis, lab results, radiology results, the need for further work-up and treatment in the hospital. Response to treatment: There is no appreciated change of the patient's symptoms at this time, and as a result, I will admit patient. ED course: Patient with moderate hypoxemia, likely secondary to pulmonary edema, has normal renal function, chronic hypertension, possibly congestive heart failure. Will admit for diuresis and further evaluation.. 06/27 11:21 Order name: Blood Culture Adult (2) rn 06/27 11:21 Order name: CBC with Diff; Complete Time: 12:36 rn 06/27 11:21 Order name: CMP; Complete Time: 12:53 rn 06/27 11:21 Order name: Lactate w/ 2H reflex if indic.; Complete Time: 12:37 rn 06/27 11:21 Order name: Protime (+inr); Complete Time: 12:37 rn 06/27 11:21 Order name: Ptt, Activated; Complete Time: 12:36 rn 06/27 11:21 Order name: COVID-19 Ag + Flu A+B Ag; Complete Time: 12:37 rn 06/27 11:21 Order name: BNP; Complete Time: 12:53 rn 06/27 13:42 Order name: Basic Metabolic Panel EDMS 06/27 13:42 Order name: Basic Metabolic Panel EDMS 06/27 13:42 Order name: Basic Metabolic Panel EDMS 06/27 13:42 Order name: Basic Metabolic Panel EDMS 06/27 13:42 Order name: Basic Metabolic Panel EDMS 06/27 13:42 Order name: Basic Metabolic Panel EDMS 06/27 13:42 Order name: T4 Free EDMS 06/27 13:42 Order name: Thyroid Stimulating Hormone EDMS 06/27 13:42 Order name: CBC with Automated Diff EDMS 06/27 13:42 Order name: CBC with Automated Diff EDMS 06/27 13:42 Order name: CBC with Automated Diff EDMS 06/27 13:42 Order name: CBC with Automated Diff EDMS 06/27 13:42 Order name: CBC with Automated Diff EDMS 06/27 13:42 Order name: Urinalysis w/ reflexes EDMS 06/27 13:43 Order name: CBC with Automated Diff EDMS 06/27 13:43 Order name: Lipid Profile EDMS 06/27 13:43 Order name: Lipid Profile EDMS 06/27 13:43 Order name: Magnesium EDMS 06/27 13:43 Order name: Magnesium EDMS 06/27 13:43 Order name: Magnesium EDMS 06/27 13:43 Order name: Magnesium EDMS 06/27 13:43 Order name: Magnesium EDMS 06/27 13:43 Order name: Magnesium EDMS 06/27 13:43 Order name: Phosphorus EDMS 06/27 13:43 Order name: Phosphorus EDMS 06/27 13:43 Order name: Phosphorus EDMS 06/27 13:43 Order name: Phosphorus EDMS 06/27 13:43 Order name: Phosphorus EDMS 06/27 13:43 Order name: Phosphorus EDMS 06/27 13:43 Order name: Troponin High Sensitivity EDMS 06/27 13:43 Order name: Troponin High Sensitivity; Complete Time: 17:03 EDMS 06/27 13:43 Order name: Troponin High Sensitivity EDMS 06/27 13:43 Order name: Troponin High Sensitivity EDMS 06/27 11:12 Order name: XRAY Chest (1 view); Complete Time: 12:37 rn 06/27 13:42 Order name: Physical Therapy Consult EDIA 06/27 11:21 Order name: Accucheck; Complete Time: 11:59 rn 06/27 11:21 Order name: Cardiac monitoring; Complete Time: 11:31 rn 12 11:21 Order name: EKG - Nurse/Tech; Complete Time: 11:59 rn 12 11:21 Order name: IV Saline Lock - Large Bore; Complete Time: 11:59 rn 12 11:21 Order name: Labs collected and sent; Complete Time: 11:59 rn 12 11:21 Order name: O2 Per Protocol; Complete Time: 11:31 rn 06/27 11:21 Order name: O2 Sat Monitoring; Complete Time: 11:31 rn 06/27 11:21 Order name: Vital Signs; Complete Time: 11:31 rn EC:20 Rate is 99 beats/min. Rhythm is regular. QRS [place] is Normal. CO interval is normal. QRS rn interval is normal. QT interval is normal. No Q waves. T waves are Normal. No ST changes noted. Clinical impression: NSR w/ Non-specific ST/T Changes. Interpreted by me. Reviewed by me. Administered Medications: 13:23 Drug: Furosemide IVP 40 mg IVP once; give over 2 minutes Route: IVP; Site: right kc6 antecubital; 14:47 Follow up: Response: No adverse reaction kc6 Disposition: 12:55 Critical Care:. 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 Total time: 35 rn minutes Signatures: Dispatcher [employer] EDBrynn Ledezma Roman, MD MD rn Campbell, Kaitlyn, RN RN kc Corrections: (The following items were deleted from the chart) 11:22 11:22 PROBNP+C.LAB.BRZ ordered. EDIA EDIA 16:25 12:56 rn bd
[2024-06-27] MEDS ORDERED: FUROSEMIDE 40 MG/4 ML VIAL ONE (12:59)
--- NOTE | 2024-06-27 13:55 | P.HP ---
Certification for Inpatient Patient admitted to: Observation With expected LOS: <2 Midnights Patient will require the following post-hospital care: None Practitioner: I am a practitioner with admitting privileges, knowledge of patient current condition, hospital course, and medical plan of care. Services: Services provided to patient in accordance with Admission requirements found in Title 42 Section 412.3 of the Code of Federal Regulations <Olena Arreola - Last Filed: 06/27/24 20:41> Patient History Date of Service: 06/27/24 Reason for admission: Acute hypoxic respiratory failure 2/2 CHF History of Present Illness: Fabian Yuen is a 78 year old male with Pmhx Hypercholesterolemia; Hypertensive disorder; benign prostatic hyperplastia; Anxiety who presents with hypoxia from his doctors office. Family at the bedside reports he went for blood work on June 20 and started to feel short of breath which has worsened. His daughter took him to see his PCP as a follow up on that blood work finding his Spo2 42% increasing slowly on 2 LNC. He then came to the ED where a chest xray showing "Moderate CHF versus volume overload pattern suspected." Laboratory evaluation significant for BNP 1955, T. bili 1.4, troponin 88.9, bicarb 39, flu and COVID-negative. Fabian will be admitted to hospitalist service for new onset CHF and NSTEMI. - Past Medical/Surgical History -: Hypercholesterolemia -: Hypertension -: BPH -: Anxiety Past Surgical History: Patient denies surgical history - Social History Smoking Status: Former smoker Alcohol use: Yes <Olena Arreola - Last Filed: 06/27/24 20:41> Date of Service: 06/27/24 <Jovani Mohr - Last Filed: 06/27/24 22:30> Allergies No Known Allergies Allergy (Unverified 06/27/24 13:45) Home Medications: Amlodipine Besylate/Benazepril [Amlodipine-Benazepril 5-10 mg] 1 cap PO DAILY 06/27/24 Atorvastatin Calcium 20 mg PO DAILY 06/27/24 Fluticasone Propionate 16 gm NS DAILY 06/27/24 Hydroxyzine HCl [Atarax] 25 mg PO Q12HR PRN 06/27/24 Loratadine [Claritin] 10 mg PO DAILY 06/27/24 Propylene Glycol/Peg 400/Pf [Systane 0.3-0.4% Eye Drops] 1 each OP BID 06/27/24 Tamsulosin HCl 0.4 mg PO DAILY 06/27/24 Review of Systems Other: per HPI <Olena Arreola - Last Filed: 06/27/24 20:41> Physical Examination - Physical Exam General: Oriented x3, Other (lethargic) HEENT: Atraumatic, Normocephalic, PERRLA Neck: 2+ carotid pulse no bruit, JVD not distended Respiratory: Clear to auscultation bilaterally, Normal air movement Cardiovascular: Normal pulses, Irregular heart rate/rhythm Capillary refill: <2 Seconds Gastrointestinal: Normal bowel sounds, Soft and benign Musculoskeletal: No clubbing Integumentary: No rashes Neurological: Normal speech, Normal tone - Studies Laboratory Data (last 24 hrs) 06/27/24 06/27/24 06/27/24 11:53 11:53 11:53 WBC 5.70 Hgb 16.0 Hct 48.8 Plt Count 223 PT 12.4 INR 1.09 APTT 40.3 H Sodium 137 Potassium 3.6 BUN 15 Creatinine 0.70 Glucose 104 Total Bilirubin 1.4 H AST 13 L ALT 17 Alkaline Phosphatase 82 <Olena Arreola - Last Filed: 06/27/24 20:41> - Studies Laboratory Data (last 24 hrs) 06/27/24 06/27/24 06/27/24 11:53 11:53 11:53 WBC 5.70 Hgb 16.0 Hct 48.8 Plt Count 223 PT 12.4 INR 1.09 APTT 40.3 H Sodium 137 Potassium 3.6 BUN 15 Creatinine 0.70 Glucose 104 Total Bilirubin 1.4 H AST 13 L ALT 17 Alkaline Phosphatase 82 <Jovani Mohr - Last Filed: 06/27/24 22:30> Assessment and Plan - Plan Assessment and plan Acute Hypoxic respiratory failure secondary to new onset CHF NSTEMI -Trend troponin, mildly elevated -Echocardiogram ordered -Cardiology consulted -Continuous telemetry -Lasix twice daily -Asa, lipitor daily -Lipitor and TSH pending -Strict intake and output, daily weights Hypertension Hyperlipidemia Anxiety BPH -Continue home medication DVT PPx Lovenox Full code LOS 24-hour ops Discharge Plan: Home Plan to discharge in: 48 Hours - Advance Directives Does patient have a Living Will: No Does patient have a Durable POA for Healthcare: No <Olena Arreola - Last Filed: 06/27/24 20:41> Physician Review: Patient Assessed, Agree with Above Assessment and Plan <Jovani Mohr - Last Filed: 06/27/24 22:30>
[2024-06-27] MEDS: FUROSEMIDE 40 MG/4 ML VIAL IV SCH ×2 (17:00→21:15)
[2024-06-27] MEDS: PNEUMOCOCCAL VACCINE 0.5 ML IMVAC ONE (19:00)
[2024-06-27] MEDS: FLU (Fluarix Triv) TS24-25(6MOS UP)/PF 45 MCG/0.5 ML Syringe IM ONE (19:00)
[2024-06-27] MEDS: ATORVASTATIN 40 MG TAB PO SCH (21:15)
[2024-06-28 04:58] LABS: Absolute Lymphocytes (CBC) 1.2 K/uL (0.7-4.9); Absolute Neutrophil 4.7 K/uL (1.8-8.0); Basophils % 0.1 % (0-1.3); Eosinophils % 0.3 % (0-4.4); Hematocrit 48.4 % (39.6-49.0); Hemoglobin 15.8 g/dL (13.6-17.9); Lymphocytes % 17.5 % (15.3-44.8); MCH 28.8 pg (27.0-35.0); MCHC 32.7 g/dL (32.0-36.0); MCV 88.3 fL (80-100); MPV 9.2 fL (7.6-11.3); Monocytes % 14.8 % (3.3-12.3); Neutrophils % 67.3 % (41.7-73.7); Nucleated Red Blood Cells % 0.2 % (0-0); Platelets 195 thou/uL (152-406); RBC Red Blood Cell Count 5.48 M/uL (4.33-5.43); Red Cell Distribution Width 15.5 % (12.1-15.2)
[2024-06-28 05:34] LABS: Anion Gap 5.4 mEq/L (5.0-15.0); BUN Blood Urea Nitrogen 14 mg/dL (7-18); Glomerular Filtration Rate 97 ml/min (=/>90); Glucose Level 106 mg/dL (74-106); HDL Cholesterol 50 mg/dL (40-60); LDL Cholesterol, Calculated 78 mg/dL (<130); LDL Cholesterol,Calc NonReport 78; Magnesium 2.2 mg/dL (1.6-2.4); Phosphorus 5.7 mg/dL (2.5-4.9); Potassium 3.4 mEq/L (3.5-5.1); Sodium Level 137 mEq/L (136-145); Thyroid Stimulating Hormone 0.337 uIU/mL (0.358-3.740)
[2024-06-28 05:35] LABS: Bicarbonate > 45 mEq/L (21-32)
[2024-06-28 07:20] LABS: Urine Bilirubin NEGATIVE (Negative); Urine Blood Negative (Negative); Urine Clarity Clear (Clear); Urine Color Light-Yellow (Yellow); Urine Glucose NEGATIVE (Negative); Urine Ketones NEGATIVE (Negative); Urine Microscopic Reflex YN NO UMIC; Urine Nitrite NEGATIVE (Negative); Urine Protein NEGATIVE (Negative); Urine Urobilinogen Normal (Normal)
[2024-06-28] MEDS: POTASSIUM 25 MEQ EFFERV TAB PO ONE (08:03)
[2024-06-28] MEDS: AMLODIPINE 5 MG TAB PO SCH (10:00)
[2024-06-28] MEDS: LORATADINE 10 MG TAB PO SCH (10:00)
[2024-06-28] MEDS: ENOXAPARIN 40 MG/0.4 ML SQ SCH (10:00)
[2024-06-28] MEDS: BENAZEPRIL 10 MG TAB PO SCH (10:00)
[2024-06-28] MEDS: ASPIRIN EC 81 MG TAB PO SCH (10:00)
[2024-06-28] MEDS: TAMSULOSIN 0.4 MG SR CAP PO SCH (10:00)
--- NOTE | 2024-06-28 11:11 | P.CNS ---
Date of Consult: 06/28/24 Chief Complaint: Acute hypoxic respiratory failure 2/2 CHF History of Present Illness: Patient with PMH of HTN, presented with worsening SOB for the last week, denies chest pain, no palpitations, no syncope. Allergies No Known Allergies Allergy (Unverified 06/27/24 13:45) Home medications list reviewed: Yes Home Medications: Amlodipine Besylate/Benazepril [Amlodipine-Benazepril 5-10 mg] 1 cap PO DAILY 06/27/24 Atorvastatin Calcium 20 mg PO DAILY 06/27/24 Fluticasone Propionate 16 gm NS DAILY 06/27/24 Hydroxyzine HCl [Atarax] 25 mg PO Q12HR PRN 06/27/24 Loratadine [Claritin] 10 mg PO DAILY 06/27/24 Propylene Glycol/Peg 400/Pf [Systane 0.3-0.4% Eye Drops] 1 each OP BID 06/27/24 Tamsulosin HCl 0.4 mg PO DAILY 06/27/24 - Past Medical/Surgical History Diabetic: No -: Hypercholesterolemia -: Hypertension -: BPH -: Anxiety -: catarct sx - Social History Alcohol use: Yes CD- Drugs: No Caffeine use: No Place of Residence: Home Review of Systems 10-point ROS is otherwise unremarkable Physical Examination Temp Pulse Resp BP Pulse Ox 97.8 F 93 H 16 129/63 94 06/28/24 08:00 06/28/24 08:00 06/28/24 08:00 06/28/24 08:00 06/28/24 08:00 General: Alert, In no apparent distress HEENT: Atraumatic, PERRLA, Mucous membr. moist/pink, EOMI, Sclerae nonicteric Neck: Supple, 2+ carotid pulse no bruit, No LAD, Without JVD or thyroid abnormality Respiratory: Clear to auscultation bilaterally, Normal air movement Cardiovascular: Regular rate/rhythm, Normal S1 S2 Gastrointestinal: Normal bowel sounds, No tenderness Musculoskeletal: No tenderness Integumentary: No rashes Neurological: Normal gait, Normal speech, Normal tone, Normal affect Lymphatics: No axilla or inguinal lymphadenopathy Laboratory Data (last 24 hrs) 06/27/24 06/27/24 06/27/24 11:53 11:53 11:53 WBC 5.70 Hgb 16.0 Hct 48.8 Plt Count 223 PT 12.4 INR 1.09 APTT 40.3 H Sodium 137 Potassium 3.6 BUN 15 Creatinine 0.70 Glucose 104 Total Bilirubin 1.4 H AST 13 L ALT 17 Alkaline Phosphatase 82 - Problems (1) SOB (shortness of breath) Current Visit: Yes Status: Acute Plan: continue lasix 40 mg IV BID Continue Benzapril 10 mg daily stop Norvasc add coreg 3.125 mg po BID add Aldactone 25 mg daily get echo continue to monitor input and output and electrolytes (2) Troponin level elevated Current Visit: Yes Status: Acute Plan: mild elevated with no significant delta, most likely type 2 KS from CHF ASA 81 mg daily Echo
--- NOTE | 2024-06-28 13:33 | ECHO ---
HEIGHT: 5 ft 2 in WEIGHT: 147 lb 0 oz DATE OF STUDY: 06/28/[address]: Olena Arreola NP 2-DIMENSIONAL: YES M.MODE: YES DOPPLER: YES COLOR FLOW: YES TDS: NO PORTABLE: YES DEFINITY: NO BUBBLE STUDY: NO DIAGNOSIS: NEW ONSET CONGESTIVE HEART FAILURE CARDIAC HISTORY: CATHERIZATION: NO SURGERY: NO PROSTHETIC VALVE: NO PACEMAKER: NO MEASUREMENTS (cm) DIASTOLIC (NORMALS) SYSTOLIC (NORMALS) IVSd 1.0 (0.6-1.2) LA Diam 3.4 (1.9-4.0) LVEF 60-65% LVIDd 3.9 (3.5-5.7) LVIDs 2.1 (2.0-3.5) %FS 46% LVPWd 1.2 (0.6-1.2) Ao Diam 3.6 (2.0-3.7) 2 DIMENSIONAL ASSESSMENT: RIGHT ATRIUM: NORMAL LEFT ATRIUM: NORMAL RIGHT VENTRICLE: NORMAL LEFT VENTRICLE: MILD LEFT VENTRICULAR HYPERTORPHY TRICUSPID VALVE: MILD TRICUSPID REGURGITATION MITRAL VALVE: NORMAL PULMONIC VALVE: NORMAL AORTIC VALVE: NORMAL PERICARDIAL EFFUSION: NONE AORTIC ROOT: NORMAL LEFT VENTRICULAR WALL MOTION: NORMAL. DOPPLER/COLOR FLOW: GRADE I DIASTOLIC DYSFUNCTION. COMMENTS: 1. NORMAL LEFT VENTRICULAR SYSTOLIC FUNCTION, EJECTION FRACTION 60-65%, NORMAL WALL MOTION. 2. GRADE I DIASTOLIC DYSFUNCTION. 3. NORMAL FILLING PRESSURE (RIGHT ATRIAL PRESSURE 0-5mmHg). 4. SEVERE PULMONARY HYPERTENSION (RIGHT VENTRICULAR SYSTOLIC PRESSURE 55-60mmHg). TECHNOLOGIST: JOHANNE GALLARDO
--- NOTE | 2024-06-28 16:44 | P.PN ---
Subjective Date of Service: 06/28/24 Chief Complaint: Acute hypoxic respiratory failure 2/2 CHF Subjective: New changes, C/O voiced (decreased appetite, however patients daughter reports that patient typically goes through phases of not eating at home), Worsening <HummelSon - Last Filed: 06/28/24 16:52> Date of Service: 06/28/24 <Jovani Mohr - Last Filed: 06/28/24 17:24> Review of Systems 10-point ROS is otherwise unremarkable General: Weakness Respiratory: SOB with Excertion Gastrointestinal: Other (decreased appeitite ) Musculoskeletal: Pedal edema <Son Hummel - Last Filed: 06/28/24 16:52> Physical Examination - Vital Signs Temperature: 98.0 F Blood Pressure: 138/61 Pulse: 96 Respirations: 18 Pulse Ox (%): 95 - Physical Exam General: Alert, In no apparent distress, Cooperative HEENT: Atraumatic, PERRLA, EOMI Neck: Supple, JVD not distended Respiratory: Normal air movement, Diminished, Expiratory wheezes Cardiovascular: Regular rate/rhythm, Normal S1 S2, Edema Gastrointestinal: Hypoactive, Non-distended, No tenderness Musculoskeletal: No tenderness Integumentary: No rashes Neurological: Normal speech, Normal tone, Normal affect Lymphatics: No axilla or inguinal lymphadenopathy <HummelJerodchanel - Last Filed: 06/28/24 16:52> Assessment And Plan - Plan Acute Hypoxic respiratory failure secondary to new onset CHF NSTEMI -Troponin trended, 88/75/71 -Echo completed with EF 60-65% -Cardiology consulted with recs: Continue lasix 40 mg IV BID, Benzapril 10 mg daily. Stop Norvasc and add Coreg 3.125 mg po BID with Aldactone 25 mg daily -Continue to monitor on telemetry -Asa, Atorvastatin daily -TSH 0.33, T4 1.3 -Monitor electrolytes -Strict intake and output -Daily weights Hypertension Hyperlipidemia -Continue home medications Amlodipine, Benazepril and Atorvastatin -Monitor BP per unit protocol Anxiety -Continue home medication Hydroxyzine BPH Acute Urinary Retention -Continue home medication Flomax -Bladder scan with >400mL -Straight cath X1 and repeat bladder scan ordered post 6h cath -Continue to monitor output and consider [place] cath if continuing to retain -Monitor Kidney function Decreased Oral Intake -Reports history of intermittent decreased intake -Encourage oral intake -Recommend sitting up for all meals -Monitor meal percentage -Consider dietary consult if worsening DVT PPx: Lovenox Code Status: Full code Discharge Plan: Home Plan to discharge in: 48 Hours - Code Status/Comfort Care Code Status Assessed: Yes (FULL CODE) Physician Review: Patient Assessed, Agree with Above Assessment and Plan <Son Hummel - Last Filed: 06/28/24 16:52> Physician Review: Patient Assessed, Agree with Above Assessment and Plan <Jovani Mohr - Last Filed: 06/28/24 17:24>
[2024-06-28] MEDS: carvediloL 3.125 MG TAB PO SCH (18:00)
[2024-06-28 19:09] VITALS: BMI 4133.6
[2024-06-28] MEDS ORDERED: NA CHLORIDE 0.9% 1,000 ML IV SCH (23:00)
[2024-06-28] MEDS: MIDODRINE HCL 5 MG TABLET PO ONE (23:22)
[2024-06-29 04:28] LABS: Absolute Lymphocytes (CBC) 0.7 K/uL (0.7-4.9); Absolute Monocytes 0.8 K/uL (0.1-1.3); Absolute Neutrophil 4.8 K/uL (1.8-8.0); Basophils % 0.2 % (0-1.3); Eosinophils % 0.2 % (0-4.4); Hematocrit 47.4 % (39.6-49.0); Hemoglobin 15.1 g/dL (13.6-17.9); Lymphocytes % 11.7 % (15.3-44.8); MCH 28.4 pg (27.0-35.0); MCV 88.9 fL (80-100); MPV 9.2 fL (7.6-11.3); Monocytes % 11.9 % (3.3-12.3); Nucleated Red Blood Cells % 0.2 % (0-0); Platelets 177 thou/uL (152-406); RBC Red Blood Cell Count 5.33 M/uL (4.33-5.43); Red Cell Distribution Width 15.5 % (12.1-15.2)
[2024-06-29 04:54] LABS: Anion Gap 5.9 mEq/L (5.0-15.0); BUN Blood Urea Nitrogen 26 mg/dL (7-18); Glomerular Filtration Rate 64 ml/min (=/>90); Glucose Level 188 mg/dL (74-106); Magnesium 2.3 mg/dL (1.6-2.4); Phosphorus 5.3 mg/dL (2.5-4.9); Potassium 3.9 mEq/L (3.5-5.1); Sodium Level 135 mEq/L (136-145)
[2024-06-29 04:56] LABS: Bicarbonate > 45 mEq/L (21-32)
[2024-06-29] MEDS: SPIRONOLACTONE 25 MG TABLET PO SCH (09:24)
--- NOTE | 2024-06-29 10:40 | P.PN ---
Subjective Date of Service: 06/29/24 Chief Complaint: Acute hypoxic respiratory failure 2/2 CHF Subjective: No new changes, Tolerating diet, C/O voiced (Daughter reports patient ate all three of his meals yesterday. Patient is without new complaints) Review of Systems 10-point ROS is otherwise unremarkable Respiratory: SOB with Excertion Cardiovascular: Edema Physical Examination - Vital Signs Temperature: 98 F Blood Pressure: 94/46 Pulse: 93 Respirations: 17 Pulse Ox (%): 95 - Physical Exam General: Alert, In no apparent distress HEENT: Atraumatic, PERRLA, EOMI Neck: Supple, JVD not distended Respiratory: Normal air movement, Diminished Cardiovascular: Regular rate/rhythm, Normal S1 S2, Edema (mild, dependent to BLE, improved from previous day) Capillary refill: <2 Seconds Gastrointestinal: Normal bowel sounds, No tenderness Musculoskeletal: No tenderness Integumentary: No rashes Neurological: Normal speech, Normal tone, Normal affect Lymphatics: No axilla or inguinal lymphadenopathy External genitalia: Deferred Rectal: Deferred Assessment And Plan - Plan Acute Hypoxic respiratory failure secondary to new onset CHF NSTEMI -Troponin trended, 88/75/71 -Echo completed with EF 60-65% -Cardiology consulted with updated recs on 06/29: Continue lasix 40 mg IV BID, Benzapril 10 mg daily. Stop Norvasc and add Hold Coreg 3.125 mg po BID (low BP) with Aldactone 25 mg daily. Recommend Pulm consult -Continue to monitor on telemetry -Asa, Atorvastatin daily -Pulmonolgy consulted, appreciate recs -TSH 0.33, T4 1.3 -Monitor electrolytes -Strict intake and output -Daily weights Hypertension Hyperlipidemia -Continue home medications Amlodipine, Benazepril and Atorvastatin -Monitor BP per unit protocol Anxiety -Continue home medication Hydroxyzine BPH Acute Urinary Retention -Continue home medication Flomax -Bladder scan with >400mL on 06/28 -Straight cath X1 with patient voiding after -Continue to monitor output -Monitor Kidney function -Continue to work with PT Decreased Oral Intake, improving -Reports history of intermittent decreased intake -Continue to encourage oral intake -Recommend sitting up for all meals -Monitor meal percentage -Consider dietary consult if worsening DVT PPx: Lovenox Code Status: Full code Discharge Plan: Home Plan to discharge in: 24 Hours - Code Status/Comfort Care Code Status Assessed: Yes (FULL CODE) Physician Review: Patient Assessed, Agree with Above Assessment and Plan
--- NOTE | 2024-06-29 13:55 | P.PN ---
Subjective Date of Service: 06/29/24 Chief Complaint: Acute hypoxic respiratory failure 2/2 CHF Subjective: No new changes, No C/O voiced, Tolerating diet, Ambulating, Improving Review of Systems 10-point ROS is otherwise unremarkable Physical Examination - Vital Signs Temperature: 97 F Blood Pressure: 77/39 Pulse: 92 Respirations: 16 Pulse Ox (%): 91 - Physical Exam General: Alert, In no apparent distress HEENT: Atraumatic, PERRLA, EOMI Neck: Supple, JVD not distended Respiratory: Clear to auscultation bilaterally, Normal air movement Cardiovascular: Regular rate/rhythm, Normal S1 S2 Gastrointestinal: Normal bowel sounds, No tenderness Musculoskeletal: No tenderness Integumentary: No rashes Neurological: Normal speech, Normal tone, Normal affect Lymphatics: No axilla or inguinal lymphadenopathy - Studies Medications List Reviewed: Yes Assessment And Plan - Current Problems (Diagnosis) (1) SOB (shortness of breath) Current Visit: Yes Status: Acute Plan: Echo shows normal LV systolic function, DD, normal filling pressure but severe pulmonary HTN. continue lasix 40 mg IV BID Continue Benzapril 10 mg daily stop Norvasc coreg 3.125 mg po BID (on hold duw to low BP) Aldactone 25 mg daily continue to monitor input and output and electrolytes Would recommend Pulmonary consult (2) Troponin level elevated Current Visit: Yes Status: Acute Plan: mild elevated with no significant delta, most likely type 2 KS from CHF, Echo shows normal EF. ASA 81 mg daily Physician Review: Patient Assessed, Agree with Above Assessment and Plan
[2024-06-29] MEDS: THIAMINE 200 MG/2 ML INJ IVP SCH (14:30)
--- NOTE | 2024-06-29 14:47 | EKG ---
Test Date: 2024-06-27 Test Time: 11:39:28 Speech Language Pathology Assistant: LUIS MEASUREMENT RESULTS: Intervals: Rate: 99 WA: 200 QRSD: 94 QT: 342 QTc: 438 [place]: P: 67 WA: 200 QRS: 97 T: 48 INTERPRETIVE STATEMENTS: Normal sinus rhythm Anterior infarct, age undetermined Abnormal ECG No previous ECG available for comparison Electronically Signed On 06-29-24 14:42:37 CDT by Nicholas Sultana
[2024-06-29] MEDS ORDERED: FUROSEMIDE 40 MG/4 ML VIAL IV SCH (21:00)
[2024-06-29] MEDS: FUROSEMIDE 40 MG/4 ML VIAL IV SCH (21:42)
[2024-06-29] MEDS ORDERED: MIDODRINE HCL 5 MG TABLET PO ONE (22:14)
[2024-06-30 04:57] LABS: Absolute Eosinophils 0.1 K/uL (0-0.5); Absolute Lymphocytes (CBC) 0.9 K/uL (0.7-4.9); Absolute Monocytes 0.9 K/uL (0.1-1.3); Absolute Neutrophil 5.8 K/uL (1.8-8.0); Basophils % 0.3 % (0-1.3); Eosinophils % 0.7 % (0-4.4); Hematocrit 45.5 % (39.6-49.0); Hemoglobin 14.6 g/dL (13.6-17.9); Lymphocytes % 11.6 % (15.3-44.8); MCH 28.4 pg (27.0-35.0); MCHC 32.1 g/dL (32.0-36.0); MCV 88.5 fL (80-100); MPV 9.2 fL (7.6-11.3); Monocytes % 11.9 % (3.3-12.3); Neutrophils % 75.5 % (41.7-73.7); Nucleated Red Blood Cells % 0.2 % (0-0); Platelets 170 thou/uL (152-406); RBC Red Blood Cell Count 5.13 M/uL (4.33-5.43); Red Cell Distribution Width 15.8 % (12.1-15.2)
[2024-06-30 05:58] LABS: Anion Gap 6.9 mEq/L (5.0-15.0); BUN Blood Urea Nitrogen 25 mg/dL (7-18); Glomerular Filtration Rate 96 ml/min (=/>90); Glucose Level 103 mg/dL (74-106); Magnesium 2.4 mg/dL (1.6-2.4); Phosphorus 3.7 mg/dL (2.5-4.9); Potassium 3.9 mEq/L (3.5-5.1); Sodium Level 135 mEq/L (136-145)
[2024-06-30 06:06] LABS: Bicarbonate > 45 mEq/L (21-32)
--- NOTE | 2024-06-30 07:42 | P.PN ---
Subjective Date of Service: 06/30/24 Chief Complaint: Acute hypoxic respiratory failure 2/2 CHF Subjective: No new changes, Tolerating diet, C/O voiced (Son at bedside and all questions answered, no new complaints/concerns from patient) Review of Systems 10-point ROS is otherwise unremarkable General: Weakness Respiratory: SOB with Excertion Physical Examination - Vital Signs Temperature: 98.6 F Blood Pressure: 113/57 Pulse: 94 Respirations: 16 Pulse Ox (%): 92 - Physical Exam General: In no apparent distress, Other (Lethargic ) HEENT: Atraumatic, PERRLA, EOMI Neck: Supple, JVD not distended Respiratory: Normal air movement, Diminished Cardiovascular: Regular rate/rhythm, Normal S1 S2, Edema (mild, dependant ) Capillary refill: <2 Seconds Gastrointestinal: Normal bowel sounds, No tenderness Musculoskeletal: No tenderness Integumentary: No rashes Neurological: Normal speech, Normal tone, Normal affect Lymphatics: No axilla or inguinal lymphadenopathy External genitalia: Deferred Rectal: Deferred - Studies Medications List Reviewed: Yes Assessment And Plan - Plan Acute Hypoxic respiratory failure secondary to new onset CHF NSTEMI -Troponin trended, 88/75/71 -Echo completed with EF 60-65% -Cardiology consulted with updated recs on 06/29: Continue lasix 40 mg IV BID, Benzapril 10 mg daily. Stop Norvasc and add Hold Coreg 3.125 mg po BID (low BP) with Aldactone 25 mg daily. Recommend Pulm consult -Continue to monitor on telemetry -Pulmonolgy consulted, and following -06/30: Bircarb continuing to be elevated (>45), Lasix discontinued, Diamox and spironolactone started and ABG ordered -Asa, Atorvastatin daily -TSH 0.33, T4 1.3 -Monitor electrolytes -Strict intake and output -Daily weights Hypertension Hyperlipidemia -Continue home medications Amlodipine, Benazepril and Atorvastatin -Monitor BP per unit protocol Anxiety -Continue home medication Hydroxyzine BPH Acute Urinary Retention -Continue home medication Flomax -Bladder scan with >400mL on 06/28 -Straight cath X1 with patient voiding after -Continue to monitor output -Monitor Kidney function -Continue to work with PT Decreased Oral Intake, improving -Reports history of intermittent decreased intake -Continue to encourage oral intake -Recommend sitting up for all meals -Monitor meal percentage -Consider dietary consult if worsening Alcohol Abuse Elevated Liver Enzymes -Patient reports 2 beers a day X several years -Discussed importance of avoiding alcohol at this time -Thiamine daily -T-Bili 1.8, continue to monitor DVT PPx: Lovenox Code Status: Full code Discharge Plan: Home Plan to discharge in: 24 Hours - Code Status/Comfort Care Code Status Assessed: Yes (FULL CODE) Physician Review: Patient Assessed, Agree with Above Assessment and Plan
[2024-06-30] MEDS: THIAMINE HCL 100 MG TABLET PO SCH (09:38)
[2024-06-30 10:36] LABS: AST/SGOT 11 U/L (15-37); Albumin/Globulin Ratio 0.9 (1.1-1.8); Alkaline Phosphatase 74 U/L (45-117); Bilirubin Direct 0.4 mg/dL (0-0.2); Bilirubin Indirect, Calculated 1.4 mg/dL (0.2-0.8); Bilirubin Total 1.8 mg/dL (0.2-1.0); Globulin 3.2 g/dL (2.3-3.5); Protein, Total 6.2 g/dL (6.4-8.2)
[2024-06-30 10:48] LABS: ALT/SGPT < 14 U/L (16-61)
[2024-06-30] MEDS: ACETAZOLAMIDE 500 MG IV IV SCH (12:43)
[2024-07-01] MEDS: hydrOXYzine HCL 25 MG TAB PO PRN (00:30)
[2024-07-01] MEDS: ACETAMINOPHEN 325 MG TABLET PO PRN (01:00)
[2024-07-01] MEDS: FUROSEMIDE 40 MG/4 ML VIAL IV ONE (01:11)
[2024-07-01 02:56] LABS: Absolute Basophils 0.1 K/uL (0-0.5); Absolute Lymphocytes (CBC) 0.7 K/uL (0.7-4.9); Absolute Monocytes 1.7 K/uL (0.1-1.3); Absolute Neutrophil 14.2 K/uL (1.8-8.0); Basophils % 0.4 % (0-1.3); Hematocrit 46.1 % (39.6-49.0); Hemoglobin 14.6 g/dL (13.6-17.9); Lymphocytes % 4.3 % (15.3-44.8); MCH 27.8 pg (27.0-35.0); MCHC 31.6 g/dL (32.0-36.0); MCV 87.9 fL (80-100); Monocytes % 10.5 % (3.3-12.3); Neutrophils % 84.8 % (41.7-73.7); Nucleated Red Blood Cells % 0.2 % (0-0); Platelets 167 thou/uL (152-406); RBC Red Blood Cell Count 5.24 M/uL (4.33-5.43); Red Cell Distribution Width 15.6 % (12.1-15.2)
[2024-07-01 03:13] LABS: Anion Gap 6.4 mEq/L (5.0-15.0); Magnesium 2.2 mg/dL (1.6-2.4); Phosphorus 2.9 mg/dL (2.5-4.9); Potassium 3.4 mEq/L (3.5-5.1)
--- NOTE | 2024-07-01 06:28 | P.PN ---
Subjective Date of Service: 07/01/24 Chief Complaint: Acute hypoxic respiratory failure 2/2 CHF Subjective: Worsening Review of Systems 10-point ROS is otherwise unremarkable Physical Examination - Vital Signs Temperature: 97.8 F Blood Pressure: 103/55 Pulse: 97 Respirations: 21 Pulse Ox (%): 94 - Physical Exam General: Alert, In no apparent distress HEENT: Atraumatic, Normocephalic Neck: Supple Respiratory: Clear to auscultation bilaterally Cardiovascular: Regular rate/rhythm, Normal S1 S2 Capillary refill: <2 Seconds Gastrointestinal: Soft and benign, W/out hepatosplenomegaly Musculoskeletal: No clubbing Integumentary: No rashes Neurological: Normal speech, Normal strength at 5/5 x4 extr Lymphatics: No axilla or inguinal lymphadenopathy - Studies Medications List Reviewed: Yes Assessment And Plan - Plan Acute Hypoxic respiratory failure secondary to new onset CHF NSTEMI -Troponin trended, 88/75/71 -Echo completed with EF 60-65% -Cardiology consulted with updated recs on 06/29: Continue lasix 40 mg IV BID, Benzapril 10 mg daily. Stop Norvasc and add Hold Coreg 3.125 mg po BID (low BP) with Aldactone 25 mg daily. Recommend Pulm consult -Continue to monitor on telemetry -Pulmonolgy consulted, and following -06/30: Bircarb continuing to be elevated (>45), Lasix discontinued, Diamox and spironolactone started and ABG ordered -Asa, Atorvastatin daily -TSH 0.33, T4 1.3 -Monitor electrolytes -Strict intake and output -Daily weights Hypertension Hyperlipidemia -Continue home medications Amlodipine, Benazepril and Atorvastatin -Monitor BP per unit protocol Anxiety -Continue home medication Hydroxyzine BPH Acute Urinary Retention -Continue home medication Flomax -Bladder scan with >400mL on 06/28 -Straight cath X1 with patient voiding after -Continue to monitor output -Monitor Kidney function -Continue to work with PT Decreased Oral Intake, improving -Reports history of intermittent decreased intake -Continue to encourage oral intake -Recommend sitting up for all meals -Monitor meal percentage -Consider dietary consult if worsening Alcohol Abuse Elevated Liver Enzymes -Patient reports 2 beers a day X several years -Discussed importance of avoiding alcohol at this time -Thiamine daily -T-Bili 1.8, continue to monitor DVT PPx: Lovenox Code Status: Full code Discharge Plan: Home 07/01/2024 Still has a lot of shortness of breath X-ray repeated Give a dose of Lasix Monitor closely Appreciate help from cardiology Echo findings noted Awaiting further clinical improvement Discussed with the family at the bedside Discharge Plan: Home Plan to discharge in: 48 Hours - Code Status/Comfort Care Code Status: Full Code Physician Review: Patient Assessed, Agree with Above Assessment and Plan Time Spent Managing PTS Care (In Minutes): 54
[2024-07-01] MEDS: NA CHLORIDE 0.9% 50 ML ONE (08:17)
[2024-07-01] MEDS: CEFTRIAXONE 1,000 MG in NA CHLORIDE 0.9% 50 ML IVPB SCH (08:33)
[2024-07-01] MEDS: FUROSEMIDE 40 MG/4 ML VIAL ONE (08:34)
[2024-07-01] MEDS: FUROSEMIDE 40 MG/4 ML VIAL IV SCH (08:37)
--- NOTE | 2024-07-01 08:43 | RAD REPORT ---
EXAMINATION: ONE VIEW CHEST XR CLINICAL INDICATION: Male, 78 years old.,Cough TECHNIQUE: Frontal chest projection is submitted. Examination is limited by patient positioning and t echnique. COMPARISON: 06/27/2024 FINDINGS: Progressive left retrocardiac opacity with possible component of subpulmonic effusion. Right patchy l ingular opacity and small component of pulmonary, probably stable allowing for differences in technique. No pneumothorax. The heart is normal in size. Mediastinal contours are unremarkable. IMPRESSION: Progressive left retrocardiac opacity with possible subpulmonic effusion, and stable right pleural-pa renchymal opacity. Findings raise concern for pneumonia versus congestive heart failure.
[2024-07-01] MEDS: DOXYCYCLINE 100 MG in NA CHLORIDE 0.9% 100 ML IVPB SCH (11:49)
[2024-07-02 04:32] LABS: Absolute Basophils 0.1 K/uL (0-0.5); Absolute Lymphocytes (CBC) 1.1 K/uL (0.7-4.9); Absolute Monocytes 1.6 K/uL (0.1-1.3); Absolute Neutrophil 14.9 K/uL (1.8-8.0); Basophils % 0.5 % (0-1.3); Hematocrit 45.7 % (39.6-49.0); Hemoglobin 14.2 g/dL (13.6-17.9); Lymphocytes % 6.2 % (15.3-44.8); MCH 27.8 pg (27.0-35.0); MCHC 31.1 g/dL (32.0-36.0); MCV 89.2 fL (80-100); MPV 9.3 fL (7.6-11.3); Monocytes % 8.8 % (3.3-12.3); Neutrophils % 84.5 % (41.7-73.7); Platelets 154 thou/uL (152-406); RBC Red Blood Cell Count 5.12 M/uL (4.33-5.43); Red Cell Distribution Width 15.6 % (12.1-15.2)
[2024-07-02 05:00] LABS: Anion Gap 5.3 mEq/L (5.0-15.0); Magnesium 2.3 mg/dL (1.6-2.4); Phosphorus 3.9 mg/dL (2.5-4.9); Potassium 3.3 mEq/L (3.5-5.1)
[2024-07-02] MEDS: POTASSIUM CL SA 10 MEQ TAB PO ONE (09:27)
--- NOTE | 2024-07-02 12:58 | P.PN ---
Subjective Date of Service: 07/02/24 Chief Complaint: Acute hypoxic respiratory failure 2/2 CHF Subjective: No new changes Review of Systems 10-point ROS is otherwise unremarkable Physical Examination - Vital Signs Temperature: 97.0 F Blood Pressure: 111/53 Pulse: 97 Respirations: 18 Pulse Ox (%): 99 - Physical Exam General: Alert, In no apparent distress HEENT: Atraumatic, PERRLA, EOMI Neck: Supple, JVD not distended Respiratory: Clear to auscultation bilaterally, Normal air movement Cardiovascular: Regular rate/rhythm, Normal S1 S2 Gastrointestinal: Normal bowel sounds, No tenderness Musculoskeletal: No tenderness Integumentary: No rashes Neurological: Normal speech, Normal tone, Normal affect Lymphatics: No axilla or inguinal lymphadenopathy - Studies Microbiology Data (last 24 hrs): 06/27/24 11:40 Blood - Blood Aerobic Blood Culture - Final No growth in 5 days. 06/27/24 11:40 Blood - Blood Anaerobic Blood Culture - Final No growth in 5 days. 06/27/24 11:53 Blood - Blood Aerobic Blood Culture - Final No growth in 5 days. 06/27/24 11:53 Blood - Blood Anaerobic Blood Culture - Final No growth in 5 days. Medications List Reviewed: Yes Assessment And Plan - Current Problems (Diagnosis) (1) SOB (shortness of breath) Current Visit: Yes Status: Acute Plan: Echo shows normal LV systolic function, DD, normal filling pressure but severe pulmonary HTN. continue lasix 40 mg IV BID continue Diamox 250 mg IV BID Continue Benzapril 10 mg daily coreg 3.125 mg po BID (on hold duw to low BP) Aldactone 25 mg daily continue to monitor input and output and electrolytes Would recommend Pulmonary consult (2) Troponin level elevated Current Visit: Yes Status: Acute Plan: mild elevated with no significant delta, most likely type 2 [place] from CHF, Echo shows normal EF. ASA 81 mg daily Physician Review: Patient Assessed, Agree with Above Assessment and Plan
--- NOTE | 2024-07-03 08:49 | RAD REPORT ---
EXAM: CT CHEST, ABDOMEN AND PELVIS WITHOUT CONTRAST CLINICAL INDICATION: Chest and abdominal pain TECHNIQUE: CT chest, abdomen and pelvis was performed, without IV contrast, as per department protoco l. Axial, sagittal and coronal reconstructions were obtained. One or more of the following dose reduction techniques were used: Automated exposure control, adjustment of the mA and/or kV according to the patient size, and/or iterative reconstruction. Unless otherwise specified, incidental findings do not require dedicated imaging follow-up. The lack of IV and oral contrast limits evaluation of the mediastinum, rashid, vessels, organs and barber l. COMPARISON: None FINDINGS: Mild left lower lobe atelectasis with elevation left hemidiaphragm. Mild patchy right lower lobe opacity. No mediastinal or hilar lymphadenopathy seen. Small bilateral pleural effusions. No pericardial effusion. Coronary arterial calcifications. Liver, spleen, pancreas, adrenals kidneys and bladder appear grossly normal There is no evidence of diverticulitis Marked enlargement of the prostate gland with bladder wall thickening. Small left inguinal hernia. Small umbilical hernia. 13 cm fatty mass left buttocks contains thin septations IMPRESSION: Mild right lower lobe opacities may indicate mild pneumonia Marked prostatic enlargement. 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 A well-differentiated liposarcoma is considered less likely. Further evaluation with nonemergent MRI with contrast recommended.
[2024-07-03 10:01] LABS: Anion Gap 7.5 mEq/L (5.0-15.0); Potassium 3.5 mEq/L (3.5-5.1)
[2024-07-03 12:26] LABS: Arterial Blood Carboxyhemoglob 2.3 % (0-1.5); Blood Gas Oxyhemoglobin 89.7 % (94-97); Blood Gas THB 14.8 g/dl (12-18); Blood O2 Saturation 93.5 % (92-98.5)
[2024-07-03 13:27] LABS: Absolute Lymphocytes (CBC) 0.8 K/uL (0.7-4.9); Absolute Neutrophil 8.6 K/uL (1.8-8.0); Basophils % 0.1 % (0-1.3); Eosinophils % 0.1 % (0-4.4); Hematocrit 44.6 % (39.6-49.0); Hemoglobin 14.4 g/dL (13.6-17.9); Lymphocytes % 7.5 % (15.3-44.8); MCH 28.4 pg (27.0-35.0); MCHC 32.3 g/dL (32.0-36.0); MPV 9.3 fL (7.6-11.3); Monocytes % 9.6 % (3.3-12.3); Neutrophils % 82.7 % (41.7-73.7); Nucleated Red Blood Cells % 0.1 % (0-0); Platelets 153 thou/uL (152-406); RBC Red Blood Cell Count 5.07 M/uL (4.33-5.43); Red Cell Distribution Width 15.4 % (12.1-15.2)
[2024-07-03 13:52] LABS: ALT/SGPT < 14 U/L (16-61); AST/SGOT 13 U/L (15-37); Albumin 2.7 g/dL (3.4-5.0); Albumin/Globulin Ratio 0.7 (1.1-1.8); Alkaline Phosphatase 75 U/L (45-117); Anion Gap 5.5 mEq/L (5.0-15.0); BUN Blood Urea Nitrogen 39 mg/dL (7-18); Bicarbonate 41 mEq/L (21-32); Bilirubin Total 0.9 mg/dL (0.2-1.0); Globulin 3.9 g/dL (2.3-3.5); Glomerular Filtration Rate 92 ml/min (=/>90); Glucose Level 110 mg/dL (74-106); Magnesium 2.5 mg/dL (1.6-2.4); Potassium 3.5 mEq/L (3.5-5.1); Protein, Total 6.6 g/dL (6.4-8.2); Sodium Level 133 mEq/L (136-145)
[2024-07-04 06:34] LABS: Absolute Lymphocytes (CBC) 0.8 K/uL (0.7-4.9); Absolute Monocytes 0.8 K/uL (0.1-1.3); Absolute Neutrophil 5.6 K/uL (1.8-8.0); Basophils % 0.3 % (0-1.3); Eosinophils % 0.5 % (0-4.4); Hematocrit 47.1 % (39.6-49.0); Hemoglobin 15.4 g/dL (13.6-17.9); Lymphocytes % 11.4 % (15.3-44.8); MCH 28.7 pg (27.0-35.0); MCHC 32.8 g/dL (32.0-36.0); MCV 87.5 fL (80-100); MPV 9.2 fL (7.6-11.3); Monocytes % 10.8 % (3.3-12.3); Nucleated Red Blood Cells % 0.2 % (0-0); Platelets 170 thou/uL (152-406); RBC Red Blood Cell Count 5.38 M/uL (4.33-5.43); Red Cell Distribution Width 15.7 % (12.1-15.2)
[2024-07-04 07:13] LABS: Albumin/Globulin Ratio 0.7 (1.1-1.8); Anion Gap 8.4 mEq/L (5.0-15.0); Bilirubin Total 1.2 mg/dL (0.2-1.0); C-Reactive Protein 55.8 mg/L (<3.00); Globulin 4.1 g/dL (2.3-3.5); Magnesium 2.7 mg/dL (1.6-2.4); Phosphorus 3.1 mg/dL (2.5-4.9); Potassium 3.4 mEq/L (3.5-5.1); Protein, Total 7.1 g/dL (6.4-8.2); Thyroid Stimulating Hormone 0.419 uIU/mL (0.358-3.740)
[2024-07-04 07:20] LABS: Arterial Blood Carboxyhemoglob 2.3 % (0-1.5); Blood Gas Oxyhemoglobin 94.7 % (94-97); Blood O2 Saturation 97.6 % (92-98.5)
[2024-07-04] MEDS: POTASSIUM 25 MEQ EFFERV TAB PO ONE (09:51)
[2024-07-04] MEDS: HYDROCORTISONE SUC 100 MG INJ IV ONE (09:53)
--- NOTE | 2024-07-04 11:42 | P.PN ---
Subjective Date of Service: 07/04/24 Chief Complaint: Acute hypoxic respiratory failure 2/2 CHF Subjective: No new changes, No C/O voiced, Tolerating diet, Ambulating, Improving Review of Systems 10-point ROS is otherwise unremarkable Physical Examination - Vital Signs Temperature: 98.8 F Blood Pressure: 122/57 Pulse: 95 Respirations: 20 Pulse Ox (%): 95 - Physical Exam General: Alert, In no apparent distress HEENT: Atraumatic, PERRLA, EOMI Neck: Supple, JVD not distended Respiratory: Clear to auscultation bilaterally, Normal air movement Cardiovascular: Regular rate/rhythm, Normal S1 S2 Gastrointestinal: Normal bowel sounds, No tenderness Musculoskeletal: No tenderness Integumentary: No rashes Neurological: Normal speech, Normal tone, Normal affect Lymphatics: No axilla or inguinal lymphadenopathy - Studies Medications List Reviewed: Yes Assessment And Plan - Current Problems (Diagnosis) (1) SOB (shortness of breath) Current Visit: Yes Status: Acute Plan: Echo shows normal LV systolic function, DD, normal filling pressure but severe pulmonary HTN. continue lasix 40 mg IV BID continue Diamox 250 mg IV BID Continue Benzapril 10 mg daily coreg 3.125 mg po BID (on hold duw to low BP) Aldactone 25 mg daily continue to monitor input and output and electrolytes Would recommend Pulmonary consult (2) Troponin level elevated Current Visit: Yes Status: Acute Plan: mild elevated with no significant delta, most likely type 2 [place] from CHF, Echo shows normal EF. ASA 81 mg daily Physician Review: Patient Assessed, Agree with Above Assessment and Plan
[2024-07-04] MEDS: HYDROCORTISONE SUC 100 MG INJ IV SCH (20:56)
[2024-07-05 11:49] LABS: Absolute Lymphocytes (CBC) 0.6 K/uL (0.7-4.9); Absolute Monocytes 0.4 K/uL (0.1-1.3); Absolute Neutrophil 3.9 K/uL (1.8-8.0); Basophils % 0.2 % (0-1.3); Eosinophils % 0.1 % (0-4.4); Hematocrit 44.9 % (39.6-49.0); Hemoglobin 14.8 g/dL (13.6-17.9); MCH 28.2 pg (27.0-35.0); MCHC 32.9 g/dL (32.0-36.0); MCV 85.8 fL (80-100); MPV 9.2 fL (7.6-11.3); Monocytes % 8.7 % (3.3-12.3); Platelets 177 thou/uL (152-406); RBC Red Blood Cell Count 5.23 M/uL (4.33-5.43); Red Cell Distribution Width 15.4 % (12.1-15.2)
[2024-07-05 12:02] LABS: Albumin/Globulin Ratio 0.8 (1.1-1.8); Anion Gap 7.5 mEq/L (5.0-15.0); Bilirubin Total 0.9 mg/dL (0.2-1.0); Magnesium 2.4 mg/dL (1.6-2.4); Potassium 3.5 mEq/L (3.5-5.1)
[2024-07-05] MEDS: POTASSIUM 25 MEQ EFFERV TAB PO ONE (18:59)
[2024-07-06 06:21] LABS: Absolute Lymphocytes (CBC) 0.9 K/uL (0.7-4.9); Absolute Monocytes 0.7 K/uL (0.1-1.3); Absolute Neutrophil 4.2 K/uL (1.8-8.0); Basophils % 0.1 % (0-1.3); Eosinophils % 0.1 % (0-4.4); Hematocrit 45.6 % (39.6-49.0); Hemoglobin 14.8 g/dL (13.6-17.9); Lymphocytes % 15.8 % (15.3-44.8); MCH 27.9 pg (27.0-35.0); MCHC 32.4 g/dL (32.0-36.0); MCV 86.1 fL (80-100); MPV 9.5 fL (7.6-11.3); Monocytes % 12.5 % (3.3-12.3); Neutrophils % 71.5 % (41.7-73.7); Nucleated Red Blood Cells % 0.1 % (0-0); Platelets 183 thou/uL (152-406); RBC Red Blood Cell Count 5.29 M/uL (4.33-5.43); Red Cell Distribution Width 15.6 % (12.1-15.2)
[2024-07-06 06:22] LABS: Anion Gap 7.6 mEq/L (5.0-15.0); Magnesium 2.5 mg/dL (1.6-2.4); Potassium 3.6 mEq/L (3.5-5.1)
[2024-07-06] MEDS: POTASSIUM 25 MEQ EFFERV TAB PO ONE (09:57)
[2024-07-06] MEDS: ALBUMIN HUMAN 25% 100 ML IV ONE (22:08)
--- NOTE | 2024-07-06 22:39 | RAD REPORT ---
EXAMINATION: ONE VIEW CHEST XR CLINICAL INDICATION: Cough TECHNIQUE: Frontal chest projection is submitted. Examination is limited by patient positioning and t echnique. COMPARISON: 07/01/2024 FINDINGS: Elevated left hemidiaphragm, unchanged. The lungs are emphysematous. The heart is moderately enlarged with a tortuous thoracic aorta. No displaced fractures identified.
[2024-07-07] MEDS ORDERED: LACTULOSE 20 GM/30 ML UCUP PO PRN (02:55)
[2024-07-07 05:52] LABS: Anion Gap 3.6 mEq/L (5.0-15.0); Potassium 3.6 mEq/L (3.5-5.1)
[2024-07-07] MEDS: DOCUSATE NA 100 MG CAP PO SCH (09:35)
[2024-07-07] MEDS: POTASSIUM 25 MEQ EFFERV TAB PO ONE (11:01)
[2024-07-07] MEDS: HYDROCORTISONE 10 MG TAB PO SCH (12:35)
[2024-07-07] MEDS: acetaZOLAMIDE 250 MG TAB PO SCH (12:35)
[2024-07-07] MEDS: CEFDINIR 300 MG CAP PO SCH (20:44)
[2024-07-07] MEDS: DOXYCYCLINE 100 MG CAP PO SCH (20:44)
--- NOTE | 2024-07-08 00:58 | P.PN ---
Subjective Date of Service: 07/02/24 Patient's asleep, not waking up. Patient with generalized weakness. Clearly having to try to feed him. Usually taking 1 or 2 bites. ED for each increased intake. If no significant improvement with next 24-48 hours of also contemplated hospice care. Monitor respiratory status as well. May need further imaging studies to try the figure out what is causing patient's poor clinical condition. Review of Systems 10-point ROS is otherwise unremarkable Physical Examination - Vital Signs Temperature: 98.0 F Blood Pressure: 112/54 Pulse: 91 Respirations: 20 Pulse Ox (%): 95 - Physical Exam General: Alert, In no apparent distress, Oriented x3 HEENT: Atraumatic, PERRLA, EOMI Neck: Supple, JVD not distended Respiratory: Clear to auscultation bilaterally, Normal air movement Cardiovascular: Regular rate/rhythm, Normal S1 S2 Gastrointestinal: Normal bowel sounds, No tenderness Musculoskeletal: No tenderness Integumentary: No rashes Neurological: Normal speech, Normal tone, Normal affect Lymphatics: No axilla or inguinal lymphadenopathy - Studies Medications List Reviewed: Yes Assessment & Plan - Problems (Diagnosis) (1) Acute hypoxic respiratory failure Current Visit: Yes Status: Acute (2) Pulmonary hypertension Current Visit: Yes Status: Acute (3) AMS (altered mental status) Current Visit: Yes Status: Acute (4) SOB (shortness of breath) Current Visit: Yes Status: Acute (5) Troponin level elevated Current Visit: Yes Status: Acute - Plan Plan: 1. Patient with acute hypoxic respiratory failure; continue with O2 per protocol. Check ABG. Further imaging studies to monitor pulmonary status 2. Altered mental status with lethargy and poor nutrition; patient looks to be very deconditioned. Patient not really engaging well. If patient's clinical symptoms do not improve may benefit from hospice care 3. History of tobacco use; possible COPD; echocardiogram with pulmonary hypertension. Will check ABG 4. Decreased muscular strain; generalized weakness; possible myopathy; labs pending 5. Gi DVT prophylaxis Discharge Plan: Home Plan to discharge in: Greater than 2 days - Advance Directives Does patient have a Living Will: No Does patient have a Durable POA for Healthcare: No - Code Status/Comfort Care Code Status: Full Code Physician Review: Patient Assessed, Agree with Above Assessment and Plan Critical Care: No Time Spent Managing PTS Care (In Minutes): 35
--- NOTE | 2024-07-08 01:02 | P.PN ---
Date of Service: 07/07/24 Subjective patient clinically doing better. Yesterday patient walked 250 ft. Patient started feeding himself a couple of days ago and is still feeding himself at this time. Patient is overall doing much better. Keep O2 sats to keep oxygen saturation greater than 90%. Physical Examination - Vital Signs reviewed - Physical Exam General: Alert, In no apparent distress, Oriented x3 Respiratory: Clear to auscultation bilaterally, Normal air movement Cardiovascular: Regular rate/rhythm, Normal S1 S2 Gastrointestinal: Normal bowel sounds, No tenderness Musculoskeletal: No tenderness Integumentary: No rashes Neurological: No focal deficits Assessment & Plan - Problems (Diagnosis) (1) Acute hypoxic respiratory failure Current Visit: Yes Status: Acute (2) Pulmonary hypertension Current Visit: Yes Status: Acute (3) AMS (altered mental status) Current Visit: Yes Status: Acute (4) SOB (shortness of breath) Current Visit: Yes Status: Acute (5) Troponin level elevated Current Visit: Yes Status: Acute - Plan Continue with plan of care as mentioned below: 1. Patient with acute hypoxic and hypercapnic respiratory failure secondary to COPD; continue with O2 per protocol. Nebs, steroids, and abx. Check VBG. Further imaging studies as needed to monitor pulmonary status 2. Altered mental status with lethargy and poor nutrition; patient mentation much better after steroids for possible PMR; 3. Secondary pulmonary hypertension. will always be hypoxic; meds per pulmonary 4. Possible PMR; continue steroids; strength increased significantly after steroids started 5. Gi DVT prophylaxis Discharge Plan: Home Plan to discharge in: Greater than 2 days - Advance Directives Does patient have a Living Will: No Does patient have a Durable POA for Healthcare: No - Code Status/Comfort Care Code Status: Full Code Physician Review: Patient Assessed, Agree with Above Assessment and Plan Critical Care: No Time Spent Managing PTS Care (In Minutes): 35
[2024-07-08 05:36] LABS: Arterial Blood Carboxyhemoglob 1.5 % (0-1.5); Blood Gas Oxyhemoglobin 93.5 % (94-97); Blood O2 Saturation 96.7 % (92-98.5)
[2024-07-08 05:37] LABS: Blood Gas THB 14.7 g/dl (12-18)
[2024-07-08 06:06] LABS: Absolute Lymphocytes (CBC) 1.2 K/uL (0.7-4.9); Absolute Neutrophil 5.4 K/uL (1.8-8.0); Basophils % 0.2 % (0-1.3); Eosinophils % 0.3 % (0-4.4); Hematocrit 43.6 % (39.6-49.0); Hemoglobin 14.2 g/dL (13.6-17.9); Lymphocytes % 16.2 % (15.3-44.8); MCH 28.1 pg (27.0-35.0); MCHC 32.6 g/dL (32.0-36.0); MCV 86.2 fL (80-100); MPV 9.5 fL (7.6-11.3); Monocytes % 12.8 % (3.3-12.3); Neutrophils % 70.5 % (41.7-73.7); Nucleated Red Blood Cells % 0.1 % (0-0); Platelets 177 thou/uL (152-406); RBC Red Blood Cell Count 5.05 M/uL (4.33-5.43)
[2024-07-08 06:22] LABS: Albumin 2.9 g/dL (3.4-5.0); Albumin/Globulin Ratio 0.9 (1.1-1.8); Anion Gap 4.6 mEq/L (5.0-15.0); Globulin 3.4 g/dL (2.3-3.5); Magnesium 2.6 mg/dL (1.6-2.4); Potassium 3.6 mEq/L (3.5-5.1); Protein, Total 6.3 g/dL (6.4-8.2)
[2024-07-08 07:18] LABS: Anti-Nuclear Antibody Screen Positive (Negative)
[2024-07-08 07:45] LABS: Anti-Nuclear Antibody Pattern REPORT; Anti-Nuclear Antibody Titer 1:40 (Negative)
[2024-07-08] MEDS: POTASSIUM 25 MEQ EFFERV TAB PO ONE (10:07)
[2024-07-09 04:45] LABS: Anion Gap 3.2 mEq/L (5.0-15.0); Potassium 3.2 mEq/L (3.5-5.1)
[2024-07-09] MEDS: POTASSIUM 25 MEQ EFFERV TAB PO ONE (08:46)
[2024-07-09] MEDS: FUROSEMIDE 40 MG/4 ML VIAL IV SCH (08:48)
--- NOTE | 2024-07-09 10:11 | P.PN ---
Subjective Date of Service: 07/09/24 Chief Complaint: Acute hypoxic respiratory failure 2/2 CHF Subjective: No new changes, No C/O voiced, Tolerating diet, Ambulating, Improving Review of Systems 10-point ROS is otherwise unremarkable Physical Examination - Vital Signs Temperature: 97.6 F Blood Pressure: 127/62 Pulse: 84 Respirations: 22 Pulse Ox (%): 100 - Physical Exam General: Alert, In no apparent distress HEENT: Atraumatic, PERRLA, EOMI Neck: Supple, JVD not distended Respiratory: Clear to auscultation bilaterally, Normal air movement Cardiovascular: Regular rate/rhythm, Normal S1 S2 Gastrointestinal: Normal bowel sounds, No tenderness Musculoskeletal: No tenderness Integumentary: No rashes Neurological: Normal speech, Normal tone, Normal affect Lymphatics: No axilla or inguinal lymphadenopathy - Studies Medications List Reviewed: Yes Assessment And Plan - Current Problems (Diagnosis) (1) SOB (shortness of breath) Current Visit: Yes Status: Acute Plan: Echo shows normal LV systolic function, DD, normal filling pressure but severe pulmonary HTN. switch lasix to 40 mg PO daily continue Diamox 125 mg daily coreg 3.125 mg po BID (on hold duw to low BP) Aldactone 25 mg daily continue to monitor input and output and electrolytes Would recommend Pulmonary consult (2) Troponin level elevated Current Visit: Yes Status: Acute Plan: mild elevated with no significant delta, most likely type 2 [place] from CHF, Echo shows normal EF. ASA 81 mg daily Physician Review: Patient Assessed, Agree with Above Assessment and Plan
--- NOTE | 2024-07-10 05:59 | P.PN ---
Date of Service: 07/08/24 Subjective Patient's son is at bedside. Patient continues to improve clinically. He continues to feed himself. His oxygenation is much better and is hypercapnia is improved. His muscular strength is much better as well. Patient's myopathy improved significantly after starting IV steroids. CRP was elevated and slightly elevated JADYN; possible polymyalgia. Outpatient follow-up with rheumatology recommended Physical Examination - Vital Signs reviewed - Physical Exam General: Alert, In no apparent distress, Oriented x3 Respiratory: Diminished breath sounds but otherwise clear Cardiovascular: Regular rate/rhythm, Normal S1 S2 Gastrointestinal: Normal bowel sounds, No tenderness Musculoskeletal: No tenderness; Muscular atrophy Integumentary: No rashes Neurological: No focal deficits; Generalized weakness Assessment & Plan - Problems (Diagnosis) (1) Acute hypoxic respiratory failure Current Visit: Yes Status: Acute (2) Pulmonary hypertension Current Visit: Yes Status: Acute (3) AMS (altered mental status) Current Visit: Yes Status: Acute (4) SOB (shortness of breath) Current Visit: Yes Status: Acute (5) Troponin level elevated Current Visit: Yes Status: Acute - Plan Continue with plan of care as mentioned below: 1. Patient with acute hypoxic and hypercapnic respiratory failure secondary to COPD; continue with O2 per protocol. Nebs, steroids, and abx. Hypercapnia has improved. Further imaging studies as needed to monitor pulmonary statusAs an outpatient; overall patient is long-term prognosis is poor as he appears to have advanced COPD with pulmonary hypertension. 2. Altered mental status with lethargy and poor nutrition; patient mentation much better after steroids for possible PMR; 3. Secondary pulmonary hypertension. will always be hypoxic; meds per pulmonary 4. Myopathy and generalized weakness; Polymyalgia rheumatica to be further evaluated by rheumatology as an outpatient; continue steroids; strength increased significantly after steroids started 5. Gi DVT prophylaxis Discharge Plan: SNF Plan to discharge in: Greater than 2 days - Advance Directives Does patient have a Living Will: No Does patient have a Durable POA for Healthcare: No - Code Status/Comfort Care Code Status: Full Code Physician Review: Patient Assessed, Agree with Above Assessment and Plan Critical Care: No Time Spent Managing PTS Care (In Minutes): 25
--- NOTE | 2024-07-10 06:02 | P.PN ---
Date of Service: 07/09/24 Subjective Patient's daughter at bedside; patient with no new complaints. Clinically symptoms are improved. Patient's clinical condition turned around significantly after intravenous steroids. Patient was not really not responding prior to the steroids and then the following day he was able to walk around the whole nurses station. Will continue to follow-up as an outpatient with rheumatology. Awaiting for intermediate facility placement at this time. Physical Examination - Vital Signs reviewed - Physical Exam General: Alert, In no apparent distress, Oriented x3 Respiratory: Diminished breath sounds but otherwise clear Cardiovascular: Regular rate/rhythm, Normal S1 S2 Gastrointestinal: Normal bowel sounds, No tenderness Musculoskeletal: No tenderness; Muscular atrophy Integumentary: No rashes Neurological: No focal deficits; Generalized weakness Assessment & Plan - Problems (Diagnosis) (1) Acute hypoxic respiratory failure Current Visit: Yes Status: Acute (2) Pulmonary hypertension Current Visit: Yes Status: Acute (3) AMS (altered mental status) Current Visit: Yes Status: Acute (4) SOB (shortness of breath) Current Visit: Yes Status: Acute (5) Troponin level elevated Current Visit: Yes Status: Acute - Plan Continue with plan of care as mentioned below: 1. Patient with acute hypoxic and hypercapnic respiratory failure secondary to COPD; continue with O2 per protocol. Nebs, steroids, and abx. Hypercapnia has improved as patient's mentation is much better. Further imaging studies as needed to monitor pulmonary status. As an outpatient; overall patient is long- term prognosis is poor as he appears to have advanced COPD with secondary severe pulmonary hypertension. 2. Altered mental status with lethargy and poor nutrition; patient mentation much better after steroids for possible PMR; 3. Secondary severe pulmonary hypertension. will always be hypoxic; meds per pulmonary 4. Myopathy and generalized weakness; Polymyalgia rheumatica to be further evaluated by rheumatology as an outpatient; continue slow tapering dose of steroids; strength increased significantly after steroids started. 5. Gi DVT prophylaxis Discharge Plan: SNF Plan to discharge in: Greater than 2 days - Advance Directives Does patient have a Living Will: No Does patient have a Durable POA for Healthcare: No - Code Status/Comfort Care Code Status: Full Code Physician Review: Patient Assessed, Agree with Above Assessment and Plan Critical Care: No Time Spent Managing PTS Care (In Minutes): 25
--- NOTE | 2024-07-10 06:04 | P.PN ---
Date of Service: 07/03/24 Subjective Patient still very lethargic and not really waking up well. Inflammatory markers will be sent off. Patient's face is very dusky as well. Multiple labs and imaging studies to be reviewed as well as CT of the chest/abdomen/pelvis Physical Examination - Vital Signs reviewed - Physical Exam General: Alert, In no apparent distress, Oriented x3 Respiratory: Diminished breath sounds but otherwise clear Cardiovascular: Regular rate/rhythm, Normal S1 S2 Gastrointestinal: Normal bowel sounds, No tenderness Musculoskeletal: No tenderness; Muscular atrophy Integumentary: No rashes Neurological: No focal deficits; Generalized weakness Assessment & Plan - Problems (Diagnosis) (1) Acute hypoxic respiratory failure Current Visit: Yes Status: Acute (2) Pulmonary hypertension Current Visit: Yes Status: Acute (3) AMS (altered mental status) Current Visit: Yes Status: Acute (4) SOB (shortness of breath) Current Visit: Yes Status: Acute (5) Troponin level elevated Current Visit: Yes Status: Acute - Plan Continue with plan of care as mentioned below: 1. Patient with acute hypoxic and hypercapnic respiratory failure secondary to COPD; continue with O2 per protocol. Nebs, steroids, and abx. CT imaging pending 2. Altered mental status with lethargy and poor nutrition; patient Lethargic and not really eating well; Patient very cachectic and emaciated. Imaging studies to evaluate for malignancy 3. Severe pulmonary hypertension. Possibly secondary pulmonary hypertension for possible advanced COPD. Workup pending. 4. Myopathy and generalized weakness; Unknown etiology. Patient has declined and unfortunately prognosis is poor. 5. Gi DVT prophylaxis Discharge Plan: SNF Plan to discharge in: Greater than 2 days - Advance Directives Does patient have a Living Will: No Does patient have a Durable POA for Healthcare: No - Code Status/Comfort Care Code Status: Full Code Physician Review: Patient Assessed, Agree with Above Assessment and Plan Critical Care: No Time Spent Managing PTS Care (In Minutes): 25
--- NOTE | 2024-07-10 06:07 | P.PN ---
Date of Service: 07/04/24 Subjective Patient started on IV steroids as CRP was elevated. PSA is elevated as well. CT scan with advanced COPD with severe emphysematous changes. Pulmonary hypertension is most likely secondary to this. Patient with hypercapnia related to this as well. Physical Examination - Vital Signs reviewed - Physical Exam General: Alert, In no apparent distress, Oriented x3 Respiratory: Diminished breath sounds but otherwise clear Cardiovascular: Regular rate/rhythm, Normal S1 S2 Gastrointestinal: Normal bowel sounds, No tenderness Musculoskeletal: No tenderness; Muscular atrophy Integumentary: No rashes Neurological: No focal deficits; Generalized weakness Assessment & Plan - Problems (Diagnosis) (1) Acute hypoxic respiratory failure Current Visit: Yes Status: Acute (2) Pulmonary hypertension Current Visit: Yes Status: Acute (3) AMS (altered mental status) Current Visit: Yes Status: Acute (4) SOB (shortness of breath) Current Visit: Yes Status: Acute (5) Troponin level elevated Current Visit: Yes Status: Acute - Plan Continue with plan of care as mentioned below: 1. Patient with acute hypoxic and hypercapnic respiratory failure secondary to COPD; continue with O2 per protocol. Nebs, steroids, and abx. CT imaging With severe emphysematous changes 2. Altered mental status with lethargy and poor nutrition; patient Lethargic and not really eating well; Patient very cachectic and emaciated. Imaging studies to evaluate for malignancy; No evidence on imaging studies but PSA is elevated and will need outpatient urology follow-up. Increased nutritional support 3. Severe pulmonary hypertension. Possibly secondary pulmonary hypertension for possible advanced COPD. Workup pending. 4. Myopathy and generalized weakness; CRP elevated; possible polymyalgia and will start IV steroids. Patient has declined and unfortunately prognosis is poor. 5. Gi DVT prophylaxis Discharge Plan: SNF Plan to discharge in: Greater than 2 days - Advance Directives Does patient have a Living Will: No Does patient have a Durable POA for Healthcare: No - Code Status/Comfort Care Code Status: Full Code Physician Review: Patient Assessed, Agree with Above Assessment and Plan Critical Care: No Time Spent Managing PTS Care (In Minutes): 25
--- NOTE | 2024-07-10 06:09 | P.PN ---
Date of Service: 07/05/24 Subjective Patient ambulated around the whole nurses station today. Clinical symptoms have improved proved remarkably quickly. Possibly related to polymyalgia. Really the biggest change with IV steroids. Continue monitoring closely. Physical Examination - Vital Signs reviewed - Physical Exam General: Alert, In no apparent distress, Oriented x3 Respiratory: Diminished breath sounds but otherwise clear Cardiovascular: Regular rate/rhythm, Normal S1 S2 Gastrointestinal: Normal bowel sounds, No tenderness Musculoskeletal: No tenderness; Muscular atrophy Integumentary: No rashes Neurological: No focal deficits; Generalized weakness Assessment & Plan - Problems (Diagnosis) (1) Acute hypoxic respiratory failure Current Visit: Yes Status: Acute (2) Pulmonary hypertension Current Visit: Yes Status: Acute (3) AMS (altered mental status) Current Visit: Yes Status: Acute (4) SOB (shortness of breath) Current Visit: Yes Status: Acute (5) Troponin level elevated Current Visit: Yes Status: Acute (6) Elevated PSA Current Visit: Yes Status: Acute - Plan Continue with plan of care as mentioned below: 1. Patient with acute hypoxic and hypercapnic respiratory failure secondary to COPD; continue with O2 per protocol. Nebs, steroids, and abx. CT imaging With severe emphysematous changes 2. Altered mental status with lethargy and poor nutrition; patient Lethargic and not really eating well; Patient very cachectic and emaciated. Imaging studies to evaluate for malignancy; No evidence on imaging studies but PSA is elevated and will need outpatient urology follow-up. Increased nutritional support Noted as patient feeding himself at this point. Eating all his meals. 3. Severe pulmonary hypertension. Secondary pulmonary hypertension Secondary to severe emphysema. 4. Myopathy and generalized weakness; CRP elevated; possible polymyalgia and will start IV steroids. Patient's clinical condition has improved remarkably.Ambulate around the [facility]. 5. Elevated PSA; outpatient urology follow-up 6. Gi DVT prophylaxis Discharge Plan: SNF Plan to discharge in: Greater than 2 days - Advance Directives Does patient have a Living Will: No Does patient have a Durable POA for Healthcare: No - Code Status/Comfort Care Code Status: Full Code Physician Review: Patient Assessed, Agree with Above Assessment and Plan Critical Care: No Time Spent Managing PTS Care (In Minutes): 25
--- NOTE | 2024-07-10 06:10 | P.PN ---
Date of Service: 07/06/24 Subjective Patient clinically doing well. Continues to show remarkable improvement. Physical Examination - Vital Signs reviewed - Physical Exam General: Alert, In no apparent distress, Oriented x3 Respiratory: Diminished breath sounds but otherwise clear Cardiovascular: Regular rate/rhythm, Normal S1 S2 Gastrointestinal: Normal bowel sounds, No tenderness Musculoskeletal: No tenderness; Muscular atrophy Integumentary: No rashes Neurological: No focal deficits; Generalized weakness Assessment & Plan - Problems (Diagnosis) (1) Acute hypoxic respiratory failure Current Visit: Yes Status: Acute (2) Pulmonary hypertension Current Visit: Yes Status: Acute (3) AMS (altered mental status) Current Visit: Yes Status: Acute (4) SOB (shortness of breath) Current Visit: Yes Status: Acute (5) Troponin level elevated Current Visit: Yes Status: Acute (6) Elevated PSA Current Visit: Yes Status: Acute - Plan Continue with plan of care as mentioned below: 1. Patient with acute hypoxic and hypercapnic respiratory failure secondary to COPD; continue with O2 per protocol. Nebs, steroids, and abx. CT imaging With severe emphysematous changes 2. Altered mental status with lethargy and poor nutrition; patient Lethargic and not really eating well; Patient very cachectic and emaciated. Imaging studies to evaluate for malignancy; No evidence on imaging studies but PSA is elevated and will need outpatient urology follow-up. Increased nutritional support Noted as patient feeding himself at this point. Eating all his meals. 3. Severe pulmonary hypertension. Secondary pulmonary hypertension Secondary to severe emphysema. 4. Myopathy and generalized weakness; CRP elevated; possible polymyalgia and will start IV steroids. Patient's clinical condition has improved remarka tresa.Ambulate around the [facility]. 5. Elevated PSA; outpatient urology follow-up 6. Gi DVT prophylaxis Discharge Plan: SNF Plan to discharge in: Greater than 2 days - Advance Directives Does patient have a Living Will: No Does patient have a Durable POA for Healthcare: No - Code Status/Comfort Care Code Status: Full Code Physician Review: Patient Assessed, Agree with Above Assessment and Plan Critical Care: No Time Spent Managing PTS Care (In Minutes): 25
--- NOTE | 2024-07-10 14:27 | P.PN ---
Subjective Date of Service: 07/10/24 Chief Complaint: Acute hypoxic respiratory failure 2/2 CHF Subjective: No chest pain. shortness of breath improving. No nausea or vomiting. No abdominal pain. No obvious bleeding. Looks comfortable in the bed. Objective: General appearance: Alert and comfortable CVS: Normal S1 and S2 Lungs: Clear to auscultation bilaterally Abdomen: Soft, bowel sounds present, no tenderness Extremities: No lower extremity edema Physical Examination - Vital Signs Temperature: 98.5 F Blood Pressure: 125/59 Pulse: 90 Respirations: 24 Pulse Ox (%): 97 - Studies Medications List Reviewed: Yes Assessment And Plan - Plan 1. Patient with acute hypoxic and hypercapnic respiratory failure secondary to COPD; continue with O2 / BiPapper protocol. Nebs, steroids, and abx. Hypercapnia has improved as patient's mentation is much better. -pulm consult d/w Dr. Meléndez, looks like consult wa not notified previously 2. Altered mental status with lethargy and poor nutrition; patient mentation much better 3. Severe pulmonary hypertension. meds per pulmonary and cardiology 4. Myopathy and generalized weakness; Polymyalgia rheumatica to be further evaluated by rheumatology as an outpatient; continue slow tapering dose of stero ids; strength increased significantly after steroids started. -JADYN +ve 5. Elevated PSA, large prostate on CT scan; outpt urology follow-up 6. CHF ecacerbation, acute diastolic: Echo Showed 60 to 65% EF, grade 2 diastolic dysfunction, severe pulmonary hypertension continue diuretics as per cardiology. 7. Left buttock mass on CT scan: Possible lipoma, need follow-up with MRI and follow-up as an outpatient. Discharge Plan: SNF Discussed with the patient and family at bedside, discussed with the case management team about discharge plan, waiting for SNF Physician Review: Patient Assessed, Agree with Above Assessment and Plan
--- NOTE | 2024-07-10 16:24 | P.CNS ---
Date of Consult: 07/10/24 Reason for Consult: Respiratory failure severe pulmonary hypertension Chief Complaint: Respiratory failure likely chronic pulmonary hypertension History of Present Illness: Is 78 years of age admitted with hypoxemia respiratory failure dysfunction pulmonary hypertension I suspect is secondary from his COPD he is a former heavy smoker he drinks on a regular basis daughter at the bedside patient is very weak he is ambulating refuses to use BiPAP Allergies No Known Allergies Allergy (Unverified 06/27/24 13:45) Home Medications: Amlodipine Besylate/Benazepril [Amlodipine-Benazepril 5-10 mg] 1 cap PO DAILY 06/27/24 Atorvastatin Calcium 20 mg PO DAILY 06/27/24 Fluticasone Propionate 16 gm NS DAILY 06/27/24 Hydroxyzine HCl [Atarax] 25 mg PO Q12HR PRN 06/27/24 Loratadine [Claritin] 10 mg PO DAILY 06/27/24 Propylene Glycol/Peg 400/Pf [Systane 0.3-0.4% Eye Drops] 1 each OP BID 06/27/24 Tamsulosin HCl 0.4 mg PO DAILY 06/27/24 - Past Medical/Surgical History Diabetic: No -: Hypercholesterolemia -: Hypertension -: BPH -: Anxiety -: catarct sx - Social History Alcohol use: Yes CD- Drugs: No Caffeine use: No Place of Residence: Home Review of Systems General: Weakness Respiratory: Shortness of Breath Physical Examination Temp Pulse Resp BP Pulse Ox 98.5 F 90 24 H 125/59 L 97 07/10/24 14:27 07/10/24 14:27 07/10/24 14:27 07/10/24 14:27 07/10/24 14:27 General: Alert, Cooperative Respiratory: Clear to auscultation bilaterally, Diminished Cardiovascular: No edema, Regular rate/rhythm, Normal S1 S2 Gastrointestinal: Normal bowel sounds, Soft and benign, Non-distended - Problems (1) Chronic respiratory failure Current Visit: Yes Status: Acute Plan: Most likely the patient has chronic respiratory failure from underlying COPD he was a former heavy smoker alcoholic has diastolic dysfunction with severe pulmonary hypertension does not have any edema labs chemistries all reviewed there is no evidence of sepsis his chest x-ray is clear I have added sildenafil DC antibiotics I have added sildenafil add scheduled bronchodilators and is refusing BiPAP titrate sat to 90% Lasix changed to spironolactone and Diamox combination CT pulmonary angiogram rule out pulmonary embolism Qualifiers: Respiratory failure complication: hypoxia and hypercapnia Qualified Code(s): J96.11 - Chronic respiratory failure with hypoxia; J96.12 - Chronic respiratory failure with hypercapnia
[2024-07-10] MEDS: SILDENAFIL CITRATE 20 MG TABLET PO SCH (16:50)
[2024-07-10] MEDS: POTASSIUM 25 MEQ EFFERV TAB PO ONE (16:50)
[2024-07-10] MEDS: SPIRONOLACTONE 25 MG TABLET PO SCH (19:58)
[2024-07-10] MEDS: IPRATROPIUM BROM 0.5MG/2.5ML NEB SCH (20:34)
[2024-07-10] MEDS: ARFORMOTEROL TARTRATE 15 MCG/2 ML VIAL.NEB NEB SCH (20:34)
[2024-07-11 05:52] LABS: Absolute Lymphocytes (CBC) 1.6 K/uL (0.7-4.9); Absolute Monocytes 0.6 K/uL (0.1-1.3); Absolute Neutrophil 6.1 K/uL (1.8-8.0); Basophils % 0.4 % (0-1.3); Eosinophils % 0.3 % (0-4.4); Hematocrit 43.4 % (39.6-49.0); Hemoglobin 13.8 g/dL (13.6-17.9); Lymphocytes % 18.6 % (15.3-44.8); MCH 27.6 pg (27.0-35.0); MCHC 31.8 g/dL (32.0-36.0); MCV 86.9 fL (80-100); MPV 9.3 fL (7.6-11.3); Monocytes % 7.3 % (3.3-12.3); Neutrophils % 73.4 % (41.7-73.7); Nucleated Red Blood Cells % 0.1 % (0-0); Platelets 233 thou/uL (152-406); RBC Red Blood Cell Count 4.99 M/uL (4.33-5.43); Red Cell Distribution Width 15.5 % (12.1-15.2)
[2024-07-11 06:12] LABS: Anion Gap 5.8 mEq/L (5.0-15.0); Potassium 3.8 mEq/L (3.5-5.1)
--- NOTE | 2024-07-11 08:40 | RAD REPORT ---
EXAMINATION: CTA CHEST PE CLINICAL INDICATION: R/O PE TECHNIQUE: This examination was performed according to an angiographic protocol with 3D post-processi ng. This involves 3D reconstructions, MIPs, volume rendered images and/or shaded surface rendering. One or more of the following dose reduction techniques were used: Automated exposure control, adjustm ent of the mA and/or kV according to patient size, and/or iterative reconstruction. Unless otherwise specified, incidental findings do not require dedicated imaging follow-up. COMPARISON: 07/03/2024 FINDINGS: PULMONARY ARTERIES: Normal caliber. No evidence of pulmonary emboli to the subsegmental level. THORACIC AORTA: Normal caliber and configuration. LUNGS: Airspace opacity is present in the medial left lung base, small in size, probably small area i nfiltrate. PLEURA: No pleural effusion. No pneumothorax. MEDIASTINUM AND LYMPH NODES: No mediastinal mass or fluid collection. Normal size mediastinal, hilar, and axillary lymph nodes. OSSEOUS STRUCTURES AND CHEST WALL: Intact. UPPER ABDOMEN: No significant abnormalities. IMPRESSION: No evidence of pulmonary emboli to the subsegmental level. Small area of infiltrate/airspace opacity medial left lung base.
[2024-07-11 12:35] VITALS: O2SAT 97
--- NOTE | 2024-07-11 14:05 | P.DS ---
Admission Date: 06/28/24 Discharge Date: 07/11/24 Disposition: TRANSFER TO RESIDENTIAL Discharge Condition: FAIR Reason for Admission: Respiratory failure likely chronic pulmonary hypertension Hospital Course: 1. acute hypoxic and hypercapnic respiratory failure secondary to COPD; off Bipap. Nebs, steroids, and done with abx. Hypercapnia has improved as patient's mentation is much better. -pulm consult d/w Dr. Meléndez, appreciated, o/p f/u 2. Altered mental status with lethargy and poor nutrition; patient mentation much better 3. Severe pulmonary hypertension. sildenafil per pulmonary 4. Myopathy and generalized weakness; Polymyalgia rheumatica to be further evaluated by rheumatology as an outpatient; continue slow tapering dose of steroids; strength increased significantly after steroids started. -JADYN +ve 5. Elevated PSA, large prostate on CT scan; outpt urology follow-up 6. CHF exacerbation, acute diastolic: Echo Showed 60 to 65% EF, grade 2 diastolic dysfunction, severe pulmonary hypertension continue diuretics as per cardiology/ pulm 7. Left buttock mass on CT scan: Possible lipoma, need follow-up with MRI and follow-up as an outpatient. 78-year-old patient admitted with acute hypoxic hypercapnic respiratory failure, treated as COPD exacerbation, there was some concern of myopathy and PMR, he was on steroids, he is feeling better, will discharge him on tapering steroids, he need rheumatology follow-up as an outpatient. On further evaluation, he was found to have pulmonary hypertension and also heart failure, cardiology and pulmonary was following, pulmonary team started him on sildenafil, they also recommended spironolactone and Diamox for diuresis, overall he has been slowly improving, he is off BiPAP, he is on 1 to 2 L of oxygen via nasal cannula at this time, when I see the patient today he is doing well without any acute problems, he has a bed available at nursing facility, otherwise no other acute issues going on so I am planning to discharge him to go to a nursing facility. Subjective: No chest pain or shortness of breath. No nausea or vomiting. No abdominal pain. No obvious bleeding. Looks comfortable in the bed. Objective: General appearance: Alert and comfortable CVS: Normal S1 and S2 Lungs: Clear to auscultation bilaterally Abdomen: Soft, bowel sounds present, no tenderness Extremities: No lower extremity edema Vital Signs/Physical Exam: Temp Pulse Resp BP Pulse Ox 98.2 F 84 20 110/56 L 96 07/11/24 08:00 07/11/24 08:00 07/11/24 08:00 07/11/24 08:00 07/11/24 08:00 Laboratory Data at Discharge: WBC 8.40 thou/uL (4.3-10.9) 07/11/24 05:15 Hgb 13.8 g/dL (13.6-17.9) 07/11/24 05:15 Hct 43.4 % (39.6-49.0) 07/11/24 05:15 Plt Count 233 thou/uL (152-406) 07/11/24 05:15 PT 12.4 SECONDS (10-13.0) 06/27/24 11:53 INR 1.09 06/27/24 11:53 APTT 40.3 SECONDS (27.2-37.4) H 06/27/24 11:53 Sodium 135 mEq/L (136-145) L 07/11/24 05:15 Potassium 3.8 mEq/L (3.5-5.1) 07/11/24 05:15 BUN 26 mg/dL (7-18) H 07/11/24 05:15 Creatinine 0.64 mg/dL (0.70-1.30) L 07/11/24 05:15 Glucose 122 mg/dL (74-106) H 07/11/24 05:15 Phosphorus 3.1 mg/dL (2.5-4.9) 07/04/24 06:20 Magnesium 2.6 mg/dL (1.6-2.4) H 07/08/24 05:27 Total Bilirubin 1.0 mg/dL (0.2-1.0) 07/08/24 05:27 AST 20 U/L (15-37) 07/08/24 05:27 ALT 25 U/L (16-61) 07/08/24 05:27 Alkaline Phosphatase 62 U/L (45-117) 07/08/24 05:27 Triglycerides 90 mg/dL (<150) 06/28/24 04:06 Cholesterol 146 mg/dL (<200) 06/28/24 04:06 HDL Cholesterol 50 mg/dL (40-60) 06/28/24 04:06 Cholesterol/HDL Ratio 2.92 06/28/24 04:06 Home Medications: Atorvastatin Calcium 20 mg PO DAILY 06/27/24 Fluticasone Propionate 16 gm NS DAILY 06/27/24 Hydroxyzine HCl [Atarax] 25 mg PO Q12HR PRN 06/27/24 Loratadine [Claritin] 10 mg PO DAILY 06/27/24 Propylene Glycol/Peg 400/Pf [Systane 0.3-0.4% Eye Drop] 1 each OP BID 06/27/24 Tamsulosin HCl 0.4 mg PO DAILY 06/27/24 Arformoterol Tartrate [Brovana] 15 mcg NEB BIDRESP 30 Days #1 vial.neb 07/11/24 Aspirin [Aspirin EC 81 MG] 81 mg PO DAILY #30 07/11/24 Hydrocortisone [Cortef*] 20 mg PO DAILY #3 tab 07/11/24 Ipratropium Neb [Atrovent*] 0.5 mg NEB [id number] 30 Days #1 amp 07/11/24 Sildenafil Citrate [Revatio*] 20 mg PO DAILY #30 07/11/24 Spironolactone [Aldactone*] 25 mg PO BID #30 tab 07/11/24 acetaZOLAMIDE [Acetazolamide] 125 mg PO DAILY #7 07/11/24 carvediloL [Coreg*] 3.125 mg PO BID 6AM 6PM #60 tab 07/11/24 New Medications: Ipratropium Neb [Atrovent*] 0.5 mg NEB [id number] 30 Days #1 amp acetaZOLAMIDE [Acetazolamide] 125 mg PO DAILY #7 Spironolactone [Aldactone*] 25 mg PO BID #30 tab Aspirin [Aspirin EC 81 MG] 81 mg PO DAILY #30 Arformoterol Tartrate [Brovana] 15 mcg NEB BIDRESP 30 Days #1 vial.neb carvediloL [Coreg*] 3.125 mg PO BID 6AM 6PM #60 tab Hydrocortisone [Cortef*] 20 mg PO DAILY #3 tab Sildenafil Citrate [Revatio*] 20 mg PO DAILY #30 Followup: Jean Claude Christine MD [ACTIVE - CAN ADMIT] - 1-2 Weeks Nicholas Sultana MD [ACTIVE - CAN ADMIT] - 1-2 Weeks () Belen Resendiz MD [Primary Care Provider] - 1 Week (f/u in 1 week with CBC and CMP. left buttock mass on CT will need f/u MRI scan, PCP to set up. PCP to set up rheumatology follow up) Jeff Pena [ACTIVE - CAN ADMIT] - 1-2 Weeks Time spent managing pt's care (in minutes): 34
[2024-07-11 17:49] VITALS: BP 106/51; TEMP 98.5
== END 2024-07-11 17:39 | DRG 280 ==
LOC: ER 11:07 → ERHOLD 13:34 → 2ND 17:41 → OBSVTOIN 06-28 14:12
PROVIDERS: ADMIT Family Medicine; ATTEND Hospitalist
PROC: 4A133R1 Monitoring of Arterial Saturation, Peripheral, Percutaneous Approach (ICD-10-PCS; principal; 2024-07-03)
PROC: 5A09357 Assistance with Respiratory Ventilation, Less than 24 Consecutive Hours, Continuous Positive Airway Pressure (ICD-10-PCS; 2024-07-04)
DX: I11.0 Hypertensive heart disease with heart failure (principal); I50.31 Acute diastolic (congestive) heart failure; I21.A1 Myocardial infarction type 2; J96.01 Acute respiratory failure with hypoxia; J96.02 Acute respiratory failure with hypercapnia; J44.1 Chronic obstructive pulmonary disease with (acute) exacerbation; G72.9 Myopathy, unspecified; I27.20 Pulmonary hypertension, unspecified; F10.10 Alcohol abuse, uncomplicated; M35.3 Polymyalgia rheumatica; F41.9 Anxiety disorder, unspecified; E78.5 Hyperlipidemia, unspecified; N40.1 Benign prostatic hyperplasia with lower urinary tract symptoms; D17.1 Benign lipomatous neoplasm of skin and subcutaneous tissue of trunk; R33.9 Retention of urine, unspecified; R74.8 Abnormal levels of other serum enzymes; R53.1 Weakness; Z11.52 Encounter for screening for COVID-19
CPT/HCPCS: 36415; 36600; 71045; 71250; 71275; 74176; 80048; 80053; 80061; 80076; 81003; 82040; 82533; 82607; 82805; 83540; 83605; 83735; 83880; 84100; 84132; 84145; 84425; 84439; 84443; 84484; 85025; 85379; 85610; 85730; 86038; 86140; 87040; 87428; 93005; 93306; 94640; 94660; 96374; 97110; 97116; 97161; 97530; 99285; G0103; G0378; J0696; J1120; J1650; J1720; J1940; J3411; J7605; J7644; P9047; Q9967